=== PATIENT | female | born 1935 | race Caucasian/White ===

== ENCOUNTER → 2016-11-01 | Outpatient (CLI) | payer BC ==
[~2016-11-01] MED LIST: ASPI81TA28 PO; BROM0.07 OPR; CHOL100010 PO; LEVO50TA6 PO; LEVOXYL PO; PRED1SUS3 OPR; TRVOPS OPB
[2016-11-01 17:33] LABS: BLOOD UREA NITROGEN 16 mg/dl (7-18); BUN/CREATININE RATIO 22.9 (10-20); CALCIUM 9.6 mg/dl (8.5-10.1); CARBON DIOXIDE 28 mmol/L (21-32); CHLORIDE 105 mmol/L (98-107); CREATININE 0.68 mg/dl (0.60-1.20); GLUCOSE 90 mg/dl (70-99); SODIUM 143 mmol/L (136-145)
[2016-11-01 17:44] LABS: THYROID STIMULATING HORMONE 0.986 uIu/ml (0.300-4.500)
== END | disposition home or self-care (01) ==
LOC: C.LABBC 15:40
PROVIDERS: ATTEND Internal Medicine Geriatric Medicine
DX: E03.9 Hypothyroidism, unspecified (principal); I10 Essential (primary) hypertension

== ENCOUNTER → 2016-12-02 | Outpatient (CLI) | payer BC ==
[~2016-12-02] MED LIST changes: -LEVOXYL PO
--- NOTE | 2016-12-02 16:59 | DIAGNOSTIC IMAGING REPORT ---
MRI OF THE THORACIC SPINE WITHOUT IV CONTRAST CLINICAL HISTORY: Right flank pain. COMPARISON STUDY: Radiographs of the thoracic spine dated 09/08/2015. TECHNIQUE: MRI of the thoracic spine is performed using various T1 and T2-weighted sequences in the axial and sagittal planes. IV contrast was not administered for this examination. FINDINGS: Vertebral body height and alignment are maintained throughout the thoracic spine. Mild degenerative endplate edema is seen at T1-T2. Chronic degenerative endplate changes present from T5 through T9. No destructive bony lesion is seen. Hemangiomas are noted in the body of L2 and T7. Mild degenerative disc desiccation is seen throughout the thoracic spine. Tiny posterior disc bulges are noted at C6-C7, T1-T2, T12-L1, and L1-L2. No large disc herniation is seen. The central canal is widely patent. The thoracic spinal cord is normal in morphology and signal intensity. The conus medullaris terminates at the level of L1. No significant neural foraminal stenosis is seen throughout the thoracic spine. The paraspinous soft tissues are normal as visualized. A right lower lobe pulmonary lesion is questioned on axial image #20. This is not well assessed by MRI. IMPRESSION: 1. No large disc herniation, central canal stenosis, or high-grade neural foraminal narrowing is seen throughout the thoracic spine. 2. Mild degenerative disc disease with chronic endplate change as above. Mild endplate edema is noted at T1-T2. 3. The thoracic spinal cord is normal in morphology and signal intensity. 4. There is an indeterminant pulmonary lesion questioned in the right lower lobe. This is not well assessed by MRI and may be artifactual. Correlation with a chest CT is recommended for further assessment. Dictated: 12/02/2016 4:35 PM Transcribed: 12/02/2016 4:58 PM Khanh Electronically signed by: Soham Baez M.D. 12/02/2016 5:02 PM Dictated Date/Time: 12/02/2016 4:35 PM
== END | disposition home or self-care (01) ==
LOC: C.MRIBC 15:13
PROVIDERS: ATTEND Internal Medicine Geriatric Medicine
DX: R10.9 Unspecified abdominal pain (principal)

== ENCOUNTER → 2016-12-28 | Day surgery (SDC) | payer BC ==
[2016-11-22 14:36] VITALS: Ht 149.9 cm; Wt 57.3 kg
[~2016-12-28] VITALS: Ht 149.9 cm; Wt 57.3 kg
[~2016-12-28] MED LIST changes: +500ML BSS 0.3ML EPI 1:1000PF IRRIG ONE; +ACETAMINOPHEN 325 MG TAB PO PRN; +AMVISC PLUS 0.8ML SYRINGE INT OCU ONE; +ATROPINE SULFATE 0.1 MG/ML 5ML SYR IV PRN; +BSS FLUSH ONE; +CYCLOPENTOLATE HCL 1% OP SOLN PER DROP CHARGE OPR SCH; +EpHEDrine SULFATE INJ 50 MG/ML AMP IV PRN; +EpINEphrine INJ 1MG/ML AMP 1 MG/ML AMP ONE; +GATIFLOXACIN OP SOLN PER DROP CHARGE OPR SCH; +KETOROLAC 0.5% OP SOLN PER DROP CHARGE OPR SCH; +LACTATED RINGER'S 1000ML 500 ML IV SCH; +LIDOCAINE 3.5% OPH GEL PER APPLICATION CHARGE ONE; +LIDOCAINE HCL 1% MPF 2 ML VIAL ONE; +MIDAZOLAM HCL 1 MG/ML 2ML VIAL ONE; +NURSING VERBAL MED ORDER ONE; +OCUCOAT 1 ML SOLN IO ONE; +PHENYLEPHRINE HCL 10% OP SOLN PER DROP CHARGE OPR SCH; +PHENYLEPHRINE HCL 2.5% OP SOLN PER DROP CHARGE OPR SCH; +POVIDONE-IODINE OP SOLN 30 ML BTL ONE; +PROPARACAINE HCL 0.5% OP SOLN 15 ML BTL OP SCH; +TOBRAMYCIN/DEXAMETHASONE OPH OINT PER APPLN CHARGE ONE; +TROPICAMIDE 1% OP SOLN PER DROP CHARGE OPR SCH
[2016-12-28] MEDS: PHENYLEPHRINE HCL 2.5% OP SOLN PER DROP CHARGE OPR SCH ×2 (09:54→09:59)
[2016-12-28] MEDS: TROPICAMIDE 1% OP SOLN PER DROP CHARGE OPR SCH ×2 (09:55→10:00)
[2016-12-28] MEDS: CYCLOPENTOLATE HCL 1% OP SOLN PER DROP CHARGE OPR SCH ×2 (09:56→10:01)
[2016-12-28] MEDS: KETOROLAC 0.5% OP SOLN PER DROP CHARGE OPR SCH ×2 (09:57→10:02)
[2016-12-28] MEDS: GATIFLOXACIN OP SOLN PER DROP CHARGE OPR SCH ×2 (09:58→10:08)
--- NOTE | 2016-12-28 09:58 | History & Physical Bridge - [place] ---
H&P Re-Evaluation Bridge Note: I have examined the patient, reviewed the History & Physical and in the interval since the performance of the History & Physical I have noted the following changes of clinical significance: No changes noted
--- NOTE | 2016-12-28 11:22 | Anesthesia Progress Nt - [facility] ---
Anesthesia Post Op Note Date & Time Dec 28, 2016 at 11:21 Vital Signs Pain Intensity: 0 Vital Signs Past 12 Hours Date Time Temp Pulse Resp B/P Pulse Ox O2 Delivery O2 Flow Rate FiO2 12/28/16 09:39 36.6 78 20 146/91 96 Room Air Notes Mental Status: alert / awake / arousable, participated in evaluation Pt Amnestic to Procedure: Yes Nausea / Vomiting: adequately controlled Pain: adequately controlled Airway Patency, RR, SpO2: stable & adequate BP & HR: stable & adequate Hydration State: stable & adequate Anesthetic Complications: no major complications apparent
[2016-12-28 11:28] VITALS: TEMP 36.5
--- NOTE | 2016-12-28 11:29 | Discharge Instructions-SurgCtr ---
Discharge Instructions Date of Service Dec 28, 2016. Visit Reason for Visit: Cataract Right Eye Discharge Discharge Diagnosis / Problem: cataract Discharge Goals Goal(s): Improve function Activity Recommendations Activity Limitations: per Instructions/Follow-up section Anesthesia . Post Anesthesia Instructions: If you have had General Anesthesia or IV Sedation: * Do not drive today. * Resume driving when surgeon permits. * Do not make important decisions or sign legal documents today. * Call surgeon for: 1. Temperature elevations greater than 101 degrees F. 2. Uncontrollable pain. 3. Excessive bleeding. 4. Persistent nausea and vomiting. 5. Medication intolerance (nausea, vomiting or rash). * For nausea and vomiting use only clear liquids such as: tea, soda, bouillon until nausea subsides, then gradually increase diet as tolerated. * If you have any concerns or questions, call your surgeon's office. If physician is unavailable and it is an emergency, call 911 or go to the nearest emergency room. . Instructions / Follow-Up Instructions / Follow-Up ACTIVITY RECOMMENDATIONS: * No strenuous lifting, jogging or running for 4 days * No swimming or yard work for 1 week. * Limited bending is permitted, such as putting on shoes. RETURN TO SCHOOL/WORK: No work until seen by physician in office. MEDICATIONS: Resume previous medications unless instructed otherwise by your surgeon. This includes eye drops for glaucoma. Zymaxid/Gatifloxacin (goodman cap) - one drop every 2 hours until bedtime Nevanac/Ilevro/Prolensa/Ketorolac (cano cap) - one drop every 4 hours until bedtime Prednisolone (white/pink cap, SHAKE WELL) - one drop every 2 hours until bedtime Starting tomorrow - all 3 drops every 4 hours until seen in the office Optive drops - as needed for discomfort SPECIAL CARE INSTRUCTIONS: * Wear eyeshield when sleeping, for four nights. * You may wear your own glasses or sunglasses while awake. * You may read or watch TV * You may shower and wash your face, but be gentle around the eye and pat dry. * Blurry vision and mild irritation are normal. * Call office if pain is more severe or vision becomes dark at . FOLLOW UP VISIT: Follow-up with Dr Wong tomorrow. Diet Recommendations Home Diet: resume previous diet Procedures Procedures Performed: Right Cataract Phacoemulsification With Intraocular Lens Implant Pending Studies Studies pending at discharge: no Medical Emergencies . Who to Call and When: Medical Emergencies: If at any time you feel your situation is an emergency, please call 911 immediately. . Non-Emergent Contact Non-Emergency issues call your: Project Manager Interior Design . . "Provider Documentation" section prepared by Kamran Wong.
--- NOTE | 2016-12-28 11:29 | [facility] Operative Report ---
Operative Report Date of Service Dec 28, 2016. Operative Report 1. PREOPERATIVE DIAGNOSIS: Cataract of the right eye. 2. POSTOPERATIVE DIAGNOSIS: Same. 3. PROCEDURE: Phacoemulsification with intraocular lens implantation of the right eye. SURGEON: Dr. Kamran Wong. ANESTHESIA: Topical Lidocaine gel, 1% Non- Preserved intracameral Lidocaine, and monitored intravenous sedation. INDICATIONS FOR THE PROCEDURE: The patient is a 81 - year-old female with a history of cataract of the right eye causing significant visual impairment. The details of the proposed procedure were explained to the patient who asked appropriate questions and following discussion of all risks, benefits and alternatives agreed to have the procedure done. 4. OPERATION AND FINDINGS: DESCRIPTION OF PROCEDURE: After informed consent was obtained, the patient was brought to the Operating Room at the [facility]. The patient was placed in a supine position and then the right eye was prepped and draped in the usual sterile fashion for intraocular surgery. A drop of topical Lidocaine gel was placed in the operative eye. A wire lid speculum was then placed in the fornices. A corneal paracentesis was then created temporally. The Non-Preserved Lidocaine was then instilled into the anterior chamber. The anterior chamber was then pressurized with viscoelastic. A 2.0 mm clear corneal incision was then created temporally. A cystotome was inserted into the anterior chamber and used to create a tear in the anterior lens capsule. This capsular tear was then used to create a small flap and the flap was dragged in a counterclockwise direction in order to create a continuous curvilinear capsulorrhexis. Hydrodissection was accomplished with balanced salt solution. Phacoemulsification of the lens nucleus was then performed in a standard [id number] technique. The phaco time was 30 seconds with an average power of 10 %. The remaining cortical material was removed using irrigation aspiration. The capsular bag was then filled with viscoelastic. A Bausch & Lomb MI60L +22.0 diopters lens was then loaded into the injector and injected into the capsular bag. The remaining viscoelastic was removed with the irrigation aspiration handpiece. The wound was hydrated and then checked and found to be watertight. The intraocular pressure was checked and found to be adequate. The wire lid speculum was removed and the patient's face was cleaned and dried. TobraDex ointment was placed in the inferior fornix. The patient was discharged to the Recovery Room having tolerated the procedure well. There were no complications. The patient will be seen tomorrow in the office for follow-up. I attest to the content of the Intraoperative Record and any orders documented therein. Any exceptions are noted below.
[2016-12-28 11:50] VITALS: BP 146/83; PULSE 64; O2SAT 94
== END | disposition home or self-care (01) ==
LOC: X.SURG 09:02
PROVIDERS: ATTEND Ophthalmology
DX: H26.9 Unspecified cataract (principal); I10 Essential (primary) hypertension; E03.9 Hypothyroidism, unspecified; E78.5 Hyperlipidemia, unspecified; M19.90 Unspecified osteoarthritis, unspecified site; H40.9 Unspecified glaucoma; Z98.890 Other specified postprocedural states; Z98.41 Cataract extraction status, right eye; Z90.89 Acquired absence of other organs; Z68.26 Body mass index [BMI] 26.0-26.9, adult

== ENCOUNTER → 2017-01-18 | Day surgery (SDC) | payer BC ==
[2017-01-06 08:53] VITALS: Ht 149.9 cm; Wt 57.3 kg
[~2017-01-18] VITALS: Ht 149.9 cm; Wt 57.3 kg
[~2017-01-18] MED LIST changes: -CYCLOPENTOLATE HCL 1% OP SOLN PER DROP CHARGE OPR SCH; -GATIFLOXACIN OP SOLN PER DROP CHARGE OPR SCH; -KETOROLAC 0.5% OP SOLN PER DROP CHARGE OPR SCH; -NURSING VERBAL MED ORDER ONE; +PHENYLEPHRINE HCL 10% OP SOLN PER DROP CHARGE OPL SCH; -PHENYLEPHRINE HCL 10% OP SOLN PER DROP CHARGE OPR SCH; -PHENYLEPHRINE HCL 2.5% OP SOLN PER DROP CHARGE OPR SCH; +PROPARACAINE 0.5% OP SOLN PER DROP CHARGE OPL SCH; -PROPARACAINE HCL 0.5% OP SOLN 15 ML BTL OP SCH; -TROPICAMIDE 1% OP SOLN PER DROP CHARGE OPR SCH
[2017-01-18] MEDS: PHENYLEPHRINE HCL 2.5% OP SOLN PER DROP CHARGE OPL SCH ×2 (07:51→07:57)
[2017-01-18] MEDS: TROPICAMIDE 1% OP SOLN PER DROP CHARGE OPL SCH ×2 (07:52→07:58)
[2017-01-18] MEDS: CYCLOPENTOLATE HCL 1% OP SOLN PER DROP CHARGE OPL SCH ×2 (07:53→07:59)
[2017-01-18] MEDS: KETOROLAC 0.5% OP SOLN PER DROP CHARGE OPL SCH ×2 (07:54→08:00)
[2017-01-18] MEDS: GATIFLOXACIN OP SOLN PER DROP CHARGE OPL SCH ×2 (07:55→08:05)
--- NOTE | 2017-01-18 09:07 | Discharge Instructions-SurgCtr ---
Discharge Instructions Date of Service January 18, 2017. Visit Reason for Visit: Cataract Left Eye Discharge Discharge Diagnosis / Problem: cataract Discharge Goals Goal(s): Improve function Activity Recommendations Activity Limitations: per Instructions/Follow-up section Anesthesia . Post Anesthesia Instructions: If you have had General Anesthesia or IV Sedation: * Do not drive today. * Resume driving when surgeon permits. * Do not make important decisions or sign legal documents today. * Call surgeon for: 1. Temperature elevations greater than 101 degrees F. 2. Uncontrollable pain. 3. Excessive bleeding. 4. Persistent nausea and vomiting. 5. Medication intolerance (nausea, vomiting or rash). * For nausea and vomiting use only clear liquids such as: tea, soda, bouillon until nausea subsides, then gradually increase diet as tolerated. * If you have any concerns or questions, call your surgeon's office. If physician is unavailable and it is an emergency, call 911 or go to the nearest emergency room. . Instructions / Follow-Up Instructions / Follow-Up ACTIVITY RECOMMENDATIONS: * No strenuous lifting, jogging or running for 4 days * No swimming or yard work for 1 week. * Limited bending is permitted, such as putting on shoes. RETURN TO SCHOOL/WORK: No work until seen by physician in office. MEDICATIONS: Resume previous medications unless instructed otherwise by your surgeon. This includes eye drops for glaucoma. Zymaxid/Gatifloxacin (goodman cap) - one drop every 2 hours until bedtime Nevanac/Ilevro/Prolensa/Ketorolac (cano cap) - one drop every 4 hours until bedtime Prednisolone (white/pink cap, SHAKE WELL) - one drop every 2 hours until bedtime Starting tomorrow - all 3 drops every 4 hours until seen in the office Optive drops - as needed for discomfort SPECIAL CARE INSTRUCTIONS: * Wear eyeshield when sleeping, for four nights. * You may wear your own glasses or sunglasses while awake. * You may read or watch TV * You may shower and wash your face, but be gentle around the eye and pat dry. * Blurry vision and mild irritation are normal. * Call office if pain is more severe or vision becomes dark at . FOLLOW UP VISIT: Follow-up with Dr Wong tomorrow. Diet Recommendations Home Diet: resume previous diet Procedures Procedures Performed: Left Eye Cataract Phacoemulsification With Intraocular Lens Implant Pending Studies Studies pending at discharge: no Medical Emergencies . Who to Call and When: Medical Emergencies: If at any time you feel your situation is an emergency, please call 911 immediately. . Non-Emergent Contact Non-Emergency issues call your: Emergency Response Coordinator . . "Provider Documentation" section prepared by Kamran Wong. .
--- NOTE | 2017-01-18 09:08 | [facility] Operative Report ---
Operative Report Date of Service January 18, 2017. Operative Report 1. PREOPERATIVE DIAGNOSIS: Cataract of the left eye. 2. POSTOPERATIVE DIAGNOSIS: Same. 3. PROCEDURE: Phacoemulsification with intraocular lens implantation of the left eye. SURGEON: Dr. Kamran Wong. ANESTHESIA: Topical Lidocaine gel, 1% Non- Preserved intracameral Lidocaine, and monitored intravenous sedation. INDICATIONS FOR THE PROCEDURE: The patient is a 81 - year-old female with a history of cataract of the left eye causing significant visual impairment. The details of the proposed procedure were explained to the patient who asked appropriate questions and following discussion of all risks, benefits and alternatives agreed to have the procedure done. 4. OPERATION AND FINDINGS: DESCRIPTION OF PROCEDURE: After informed consent was obtained, the patient was brought to the Operating Room at the [facility]. The patient was placed in a supine position and then the left eye was prepped and draped in the usual sterile fashion for intraocular surgery. A drop of topical Lidocaine gel was placed in the operative eye. A wire lid speculum was then placed in the fornices. A corneal paracentesis was then created temporally. The Non-Preserved Lidocaine was then instilled into the anterior chamber. The anterior chamber was then pressurized with viscoelastic. A 2.0 mm clear corneal incision was then created temporally. A cystotome was inserted into the anterior chamber and used to create a tear in the anterior lens capsule. This capsular tear was then used to create a small flap and the flap was dragged in a counterclockwise direction in order to create a continuous curvilinear capsulorrhexis. Hydrodissection was accomplished with balanced salt solution. Phacoemulsification of the lens nucleus was then performed in a standard dovzij-[id number]-ifjvclz technique. The phaco time was 28 seconds with an average power of 10 %. The remaining cortical material was removed using irrigation aspiration. The capsular bag was then filled with viscoelastic. A Bausch & Lomb MI60L +22.0 diopters lens was then loaded into the injector and injected into the capsular bag. The remaining viscoelastic was removed with the irrigation aspiration handpiece. The wound was hydrated and then checked and found to be watertight. The intraocular pressure was checked and found to be adequate. The wire lid speculum was removed and the patient's face was cleaned and dried. TobraDex ointment was placed in the inferior fornix. The patient was discharged to the Recovery Room having tolerated the procedure well. There were no complications. The patient will be seen tomorrow in the office for follow-up. I attest to the content of the Intraoperative Record and any orders documented therein. Any exceptions are noted below.
[2017-01-18 09:09] VITALS: TEMP 36.7
[2017-01-18 09:34] VITALS: BP 152/86; PULSE 60; O2SAT 95
--- NOTE | 2017-01-18 09:38 | Anesthesia Progress Nt - [facility] ---
Anesthesia Post Op Note Date & Time January 18, 2017 at 09:38 Vital Signs Pain Intensity: 0 Vital Signs Past 12 Hours Date Time Temp Pulse Resp B/P Pulse Ox O2 Delivery O2 Flow Rate FiO2 01/18/17 09:34 60 16 152/86 95 Room Air 01/18/17 09:09 36.7 58 16 124/77 98 Room Air 01/18/17 07:46 36.7 61 16 133/71 94 Room Air Notes Mental Status: alert / awake / arousable, participated in evaluation Pt Amnestic to Procedure: Yes Nausea / Vomiting: adequately controlled Pain: adequately controlled Airway Patency, RR, SpO2: stable & adequate BP & HR: stable & adequate Hydration State: stable & adequate Anesthetic Complications: no major complications apparent
== END | disposition home or self-care (01) ==
LOC: X.SURG 07:30
PROVIDERS: ATTEND Ophthalmology
DX: H26.9 Unspecified cataract (principal); I10 Essential (primary) hypertension; E03.9 Hypothyroidism, unspecified; E78.5 Hyperlipidemia, unspecified

== ENCOUNTER → 2017-03-14 | Outpatient (CLI) | payer BC ==
[~2017-03-14] MED LIST changes: -500ML BSS 0.3ML EPI 1:1000PF IRRIG ONE; -ACETAMINOPHEN 325 MG TAB PO PRN; -AMVISC PLUS 0.8ML SYRINGE INT OCU ONE; -ATROPINE SULFATE 0.1 MG/ML 5ML SYR IV PRN; -BSS FLUSH ONE; -EpHEDrine SULFATE INJ 50 MG/ML AMP IV PRN; -EpINEphrine INJ 1MG/ML AMP 1 MG/ML AMP ONE; -LACTATED RINGER'S 1000ML 500 ML IV SCH; -LIDOCAINE 3.5% OPH GEL PER APPLICATION CHARGE ONE; -LIDOCAINE HCL 1% MPF 2 ML VIAL ONE; -MIDAZOLAM HCL 1 MG/ML 2ML VIAL ONE; -OCUCOAT 1 ML SOLN IO ONE; -PHENYLEPHRINE HCL 10% OP SOLN PER DROP CHARGE OPL SCH; -POVIDONE-IODINE OP SOLN 30 ML BTL ONE; -PROPARACAINE 0.5% OP SOLN PER DROP CHARGE OPL SCH; -TOBRAMYCIN/DEXAMETHASONE OPH OINT PER APPLN CHARGE ONE
--- NOTE | 2017-03-14 16:00 | MAMMOGRAPHY REPORT ---
BILATERAL DIGITAL SCREENING MAMMOGRAM WITH CAD: 03/14/2017 CLINICAL HISTORY: Routine screening. Patient has no complaints. TECHNIQUE: Bilateral CC and MLO views were obtained. Current study was also evaluated with a Compute r Aided Detection (CAD) system. COMPARISON: Comparison is made to exams dated: 03/11/2016 mammogram, 03/10/2015 mammogram, 10/15/2014 m ammogram, 03/08/2014 mammogram, 03/07/2013 mammogram, and 03/06/2012 mammogram - [facility] enter. BREAST COMPOSITION: The tissue of both breasts is heterogeneously dense, which may obscure small mas ses. FINDINGS: There are mild vascular calcifications in the breasts. Stable asymmetry in the medial left breast. No suspicious mass, architectural distortion or cluster of suspicious microcalcifications i s seen. IMPRESSION: ACR BI-RADS CATEGORY 1: NEGATIVE There is no mammographic evidence of malignancy. A 1 year screening mammogram is recommended. The pa tient will receive written notification of the results. Approximately 10% of breast cancers are not detected with mammography. A negative mammographic report should not delay biopsy if a clinically suggestive mass is present. Lesli Garcia M.D. ay/:03/14/2017 14:20:49 Sandblasting Supervisor: Vannessa Robertson RT(R)(M)(BD), [facility] letter sent: Normal 1/2 BI-RADS Code: ACR BI-RADS Category 1: Negative
== END | disposition home or self-care (01) ==
LOC: C.MAMM 12:54
PROVIDERS: ATTEND Internal Medicine Geriatric Medicine
DX: Z12.31 Encounter for screening mammogram for malignant neoplasm of breast (principal)

== ENCOUNTER → 2017-07-12 | Outpatient (CLI) | payer BC ==
--- NOTE | 2017-07-12 10:04 | DIAGNOSTIC IMAGING REPORT ---
CHEST 2 VIEWS ROUTINE HISTORY: 81 years-old Female CHEST PAIN acute atypical chest pain COMPARISON: Chest radiographs 08/05/2016, CT abdomen 09/05/2015 TECHNIQUE: Frontal and lateral views of the chest FINDINGS: Mild right hemidiaphragmatic elevation is unchanged. Unchanged right cardiophrenic opacity correlating with prominent epicardial fat pad. No pneumothorax, pleural effusion, focal airspace consolidation or overt pulmonary edema. Bones of the chest are grossly intact. Mild sigmoidal scoliosis. Degenerative changes of the spine and shoulders. IMPRESSION: Unchanged mild right hemidiaphragmatic elevation without acute cardiopulmonary process. The above report was generated using voice recognition software. It may contain grammatical, syntax or spelling errors. Electronically signed by: Norman Kay M.D. 07/12/2017 10:03 AM Dictated Date/Time: 07/12/2017 10:01 AM
== END | disposition home or self-care (01) ==
LOC: C.RADBC 09:43
PROVIDERS: ATTEND Internal Medicine Geriatric Medicine
DX: R07.9 Chest pain, unspecified (principal)

== ENCOUNTER → 2017-08-06 | Outpatient (CLI) | payer BC ==
--- NOTE | 2017-08-06 10:54 | DIAGNOSTIC IMAGING REPORT ---
CHEST 2 VIEWS ROUTINE HISTORY: Dyspnea. COMPARISON: Chest 07/12/2017. FINDINGS: The small linear densities within the lingula suggesting scarring or atelectasis. This is not significantly changed. The lungs are otherwise clear. No pleural effusions. No pneumothorax. The heart is normal in size. IMPRESSION: No significant change compared to the prior study. No acute process. Electronically signed by: Tadeo Khan M.D. 08/06/2017 10:53 AM Dictated Date/Time: 08/06/2017 10:52 AM
--- NOTE | 2017-08-06 10:58 | DIAGNOSTIC IMAGING REPORT ---
LUMBAR SPINE 5 VIEWS HISTORY: [id number] Lower back [id number] COMPARISON: Lumbar spine 09/08/2015. Chest 07/12/2017. FINDINGS: Mild S-shaped scoliosis of the thoracolumbar spine. This remains unchanged. The sacrum appears intact. Severe disc space narrowing and endplate sclerosis at L3-L4 which is slightly progressed. Mild disc space narrowing at L4-L5, unchanged. Mild facet osteoarthritis within the lower lumbar spine. Mild superior endplate compression deformity at L1. This is new compared the prior studies. This demonstrates approximately 10% loss of height anteriorly. IMPRESSION: Mild superior endplate compression deformity at L1 which is new compared the prior studies and favors an acute to subacute fracture. No associated retropulsion. Electronically signed by: Tadeo Khan M.D. 08/06/2017 10:56 AM Dictated Date/Time: 08/06/2017 10:53 AM
== END | disposition home or self-care (01) ==
LOC: C.RADBC 10:31
PROVIDERS: ATTEND Internal Medicine
DX: R06.00 Dyspnea, unspecified (principal); S39.92XA Unspecified injury of lower back, initial encounter; X58.XXXA Exposure to other specified factors, initial encounter

== ENCOUNTER → 2017-08-13 | Outpatient (CLI) | payer BC ==
--- NOTE | 2017-08-13 11:44 | DIAGNOSTIC IMAGING REPORT ---
CHEST 2 VIEWS ROUTINE CLINICAL HISTORY: Cough. COMPARISON STUDY: Chest radiograph August 06, 2017. FINDINGS: There is no pneumothorax or pleural effusion. There is no consolidation to suggest pneumonia. Linear left lung opacity suggests atelectasis or scarring. Cardiomediastinal silhouette is normal. Pulmonary vascularity is normal. IMPRESSION: 1. No acute cardiopulmonary findings. 2. Linear left lung opacities which favor atelectasis. Electronically signed by: Munir López M.D. 08/13/2017 11:42 AM Dictated Date/Time: 08/13/2017 11:41 AM
== END | disposition home or self-care (01) ==
LOC: C.RADBC 10:37
PROVIDERS: ATTEND Internal Medicine
DX: R05 Cough (principal); R09.89 Other specified symptoms and signs involving the circulatory and respiratory systems; R91.8 Other nonspecific abnormal finding of lung field

== ENCOUNTER → 2017-08-26 | Outpatient (CLI) | payer BC ==
--- NOTE | 2017-08-26 11:59 | DIAGNOSTIC IMAGING REPORT ---
LUMBAR SPINE W/O CONTRAST HISTORY: Pain. Trauma. Urinary incontinence. URINARY INCONTINENCE, STENOSIS TECHNIQUE: Multiplanar multisequence MRI of the lumbar spine was performed without the use of contrast. COMPARISON: None. FINDINGS: For the purpose of the report the L5-S1 disc space will be located on axial image 28 of 31. Moderate degenerative disc change throughout the entire lumbar region. Mild subacute compression deformity superior endplate L1. No evidence for displacement posteriorly of any component of the vertebral body. Signal characteristics suggest a subacute process. L1-L2: No significant compromise of the spinal canal mild broad-based disc bulge. Minimal impact anterior thecal sac. L2-L3: No significant central canal or neural foraminal narrowing. L3-L4: Mild multifactorial narrowing of the spinal canal. Broad-based bulging disc. Mild hypertrophic change posterior facets and ligamentum flavum. Minimal narrowing neuroforamina bilaterally. L4-L5: Mild broad-based bulging disc. Minimal impact anterior thecal sac. Neuroforamina are patent bilaterally. L5-S1: No significant central canal or neural foraminal narrowing. IMPRESSION: 1. Subacute compression deformity superior endplate L1 with estimated loss of vertebral body height at 10-15%. 2. No compromise of the spinal canal at this level, nor is the posterior displacement of any component of vertebral body. 3. Mild multifactorial narrowing of the spinal canal at L3-L4 and L4-L5 with only minimal narrowing narrowing of the neuroforamina bilaterally. 4. No major compromise of the spinal canal. The above report was generated using voice recognition software. It may contain grammatical, syntax or spelling errors. Electronically signed by: Ryan Peralta M.D. 08/26/2017 11:58 AM Dictated Date/Time: 08/26/2017 11:54 AM
== END | disposition home or self-care (01) ==
LOC: C.MRIBC 10:15
PROVIDERS: ATTEND Orthopaedic Surgery Orthopaedic Surgery of the Spine
DX: M48.061 Spinal stenosis, lumbar region without neurogenic claudication (principal); R32 Unspecified urinary incontinence; R93.7 Abnormal findings on diagnostic imaging of other parts of musculoskeletal system

== ENCOUNTER → 2017-12-09 | Outpatient (CLI) | payer BC ==
[2017-12-09 13:24] LABS: BASO ABS # 0.04 K/uL (0-0.2); EOS ABS # 0.24 K/uL (0-0.5); HEMATOCRIT 42.7 % (37-47); HEMOGLOBIN 14.4 g/dL (12.0-16.0); LYMPH % 39.4 %; LYMPH ABS # 1.57 K/uL (1.2-3.4); MEAN CELL VOLUME 94.3 fL (80-100); MEAN CORPUSCULAR HEMOGLOBIN 31.8 pg (25-34); MEAN CORPUSCULAR HGB CONC 33.7 g/dl (32-36); MEAN PLATELET VOLUME 9.5 fL (7.4-10.4); MONO ABS # 0.24 K/uL (0.11-0.59); NEUT % 47.6 %; NEUT ABS # 1.89 K/uL (1.4-6.5); PLATELET COUNT 218 K/uL (130-400); RED CELL DISTRIBUTION WIDTH CV 14.2 % (11.5-14.5); RED CELL DISTRIBUTION WIDTH SD 48.8 fL (36.4-46.3); WHITE BLOOD COUNT 3.98 K/uL (4.8-10.8)
[2017-12-09 13:52] LABS: ALBUMIN 3.7 gm/dl (3.4-5.0); ALT/SGPT 24 U/L (12-78); BLOOD UREA NITROGEN 13 mg/dl (7-18); CALCIUM 9.5 mg/dl (8.5-10.1); CARBON DIOXIDE 28 mmol/L (21-32); CHOLESTEROL 271 mg/dl (0-200); CREATININE 0.77 mg/dl (0.60-1.20); GLUCOSE 108 mg/dl (70-99); SODIUM 137 mmol/L (136-145)
[2017-12-09 14:03] LABS: ALKALINE PHOSPHATASE 84 U/L (45-117); AST/SGOT 23 U/L (15-37); LDL CHOLESTEROL CALCULATED 177 mg/dl; TOTAL PROTEIN 7.1 gm/dl (6.4-8.2)
== END | disposition home or self-care (01) ==
LOC: C.LABBC 09:41
PROVIDERS: ATTEND Internal Medicine Geriatric Medicine
DX: E78.5 Hyperlipidemia, unspecified (principal); M85.80 Other specified disorders of bone density and structure, unspecified site; M47.9 Spondylosis, unspecified; E03.9 Hypothyroidism, unspecified; I10 Essential (primary) hypertension; E55.9 Vitamin D deficiency, unspecified

== ENCOUNTER → 2017-12-22 | Outpatient (CLI) | payer BC ==
--- NOTE | 2017-12-22 15:20 | DIAGNOSTIC IMAGING REPORT ---
TWO VIEW CHEST CLINICAL HISTORY: Cough. FINDINGS: PA and lateral chest radiographs are compared to study dated 08/13/2017 and correlated with chest CT dated 08/22/2015. The heart is enlarged and there is atherosclerotic calcification of the thoracic aorta. The pulmonary vasculature is noncongested. Chronic interstitial thickening and mild elevation of right hemidiaphragm are similar to previous. No airspace consolidation or pleural effusion is identified. There is mild bibasilar atelectasis. There is no pneumothorax. The skeletal structures are osteopenic. The bony thorax appears intact. There is mild thoracic scoliosis. IMPRESSION: Mild cardiac enlargement with no active disease in the chest. Electronically signed by: Soham Baez M.D. 12/22/2017 3:18 PM Dictated Date/Time: 12/22/2017 3:17 PM
== END | disposition home or self-care (01) ==
LOC: C.LABBC 14:47
PROVIDERS: ATTEND Internal Medicine Geriatric Medicine
DX: R05 Cough (principal)

== ENCOUNTER → 2018-02-06 | Outpatient (CLI) | payer BC | END | disposition home or self-care (01) | LOC: C.MAMM 13:56 | PROVIDERS: ATTEND Internal Medicine Geriatric Medicine | DX: Z00.00 Encounter for general adult medical examination without abnormal findings (principal); M85.89 Other specified disorders of bone density and structure, multiple sites; M81.0 Age-related osteoporosis without current pathological fracture; S32.000A Wedge compression fracture of unspecified lumbar vertebra, initial encounter for closed fracture; X58.XXXA Exposure to other specified factors, initial encounter ==

== ENCOUNTER → 2018-05-04 | Day surgery (SDC) | payer BC ==
[2018-04-27 07:37] VITALS: Ht 148.6 cm; Wt 57.3 kg
[~2018-05-04] VITALS: Ht 148.6 cm; Wt 57.3 kg
[~2018-05-04] MED LIST changes: +ASPCH81X PO; -ASPI81TA28 PO; -BROM0.07 OPR; -CHOL100010 PO; +CHOL20009 PO; +LIDOCAINE HCL 2% 2 ML VIAL (20MG/ML) ONE; +MIDAZOLAM HCL 1 MG/ML 2ML VIAL ONE; +ONDANSETRON INJ 2 MG/ML 2 ML VIAL ONE; -PRED1SUS3 OPR; +PROPOFOL IV EMULSION 10 MG/ML 20 ML VIAL ONE; +SODIUM CHLORIDE 0.9% 500ML 500 ML IV ONE; +TRAV0.00 OPB; -TRVOPS OPB
--- NOTE | 2018-05-04 13:15 | Endo History and Physical ---
History & Physical Date of Service: May 04, 2018. Chief Complaint: RECTAL BLEED Referring Physician: DR. WILSON History of Present Illness rectal bleeding/painless; Past Surgical History Hx Cardiac Surgery: No Hx Internal Defibrillator: No Hx Abdominal Surgery: No Hx Post-Op Nausea and Vomiting: No Hx Cancer Surgery: No Hx Thoracic Surgery: No Hx Orthopedic: No Hx Urinary Tract Surgery: No Family History None Social History Smoking Status: Never Smoker Hx Substance Use: No Hx Alcohol Use: No Allergies Coded Allergies: Ezetimibe (Verified Allergy, Mild, Exhausted, 04/27/18) Timolol (Verified Allergy, Mild, Swelling, 04/27/18) Brimonidine (Verified Allergy, Unknown, SWELLING ON FACE, 04/27/18) Lisinopril (Verified Allergy, Unknown, HEART RATE DROPPED/TIRED, 04/27/18) Losartan (Verified Allergy, Unknown, SEVERE BACK PAIN, 04/27/18) Current Medications Reported Home Medications Medications Dose Route/Sig Max Daily Dose Days Date Category Travatan Z (Travoprost) 0.004 % [place] 1 Drops OPB HS 04/27/18 Reported Vitamin D (Cholecalciferol) 2,000 Unit Tab 1 Tab PO HS 04/27/18 Reported Aspirin Chewable (Aspirin) 81 Mg Chew 81 Mg PO HS 04/27/18 Reported Levothyroxine Sodium 50 Mcg Tab 1 Tab PO QAM 04/27/18 Reported Vital Signs Weight (Kilograms): 57.27 Height (Feet): 4 Height (Inches): 10.5 Date Time Temp Pulse Resp B/P (MAP) Pulse Ox O2 Delivery O2 Flow Rate FiO2 05/04/18 12:42 36.7 78 16 155/90 (111) 93 Room Air Physical Exam General Appearance: WD/WN, no apparent distress Respiratory/Chest: Auscultation: breath sounds normal Cardiovascular: Heart Auscultation: RRR Abdomen: Bowel Sounds: normal Inspection & Palpation: soft, non-distended, no tenderness, guarding & rebound Assessment and Plan colonoscopy
--- NOTE | 2018-05-04 13:56 | Discharge Instructions ---
Endoscopy Patient Instructions Date / Procedure(s) Performed May 04, 2018. Colonoscopy Allergy Information Coded Allergies: Timolol (Verified Allergy, Mild, Swelling, 04/27/18) Brimonidine (Verified Allergy, Unknown, SWELLING ON FACE, 04/27/18) Lisinopril (Verified Allergy, Unknown, HEART RATE DROPPED/TIRED, 04/27/18) Ezetimibe (Verified Adverse Reaction, Mild, Exhausted, 05/04/18) Losartan (Verified Adverse Reaction, Unknown, SEVERE BACK PAIN, 05/04/18) Discharge Date / Findings May 04, 2018. diverticulosis distal focal proctitis-bx Medication Instructions Restart Stopped Medication(s): Reported Home Medications Medications Dose Route/Sig Max Daily Dose Days Date Category Travatan Z (Travoprost) 0.004 % [place] 1 Drops OPB HS 04/27/18 Reported Vitamin D (Cholecalciferol) 2,000 Unit Tab 1 Tab PO HS 04/27/18 Reported Aspirin Chewable (Aspirin) 81 Mg Chew 81 Mg PO HS 04/27/18 Reported Levothyroxine Sodium 50 Mcg Tab 1 Tab PO QAM 04/27/18 Reported 1) keep stools soft ( fiber/water/colace 100mg twice daily 2) Protofoam 1 application three times daily x 2 weeks nayan Reported Home Medications Medications Dose Route/Sig Max Daily Dose Days Date Category Travatan Z (Travoprost) 0.004 % [place] 1 Drops OPB HS 04/27/18 Reported Vitamin D (Cholecalciferol) 2,000 Unit Tab 1 Tab PO HS 04/27/18 Reported Aspirin Chewable (Aspirin) 81 Mg Chew 81 Mg PO HS 04/27/18 Reported Levothyroxine Sodium 50 Mcg Tab 1 Tab PO QAM 04/27/18 Reported 1) keep stools soft ( fiber/water/colace 100mg twice daily 2) Protofoam 1 application three times daily x 2 weeks nayan Provider Instructions Activity Restrictions - No exercising or heavy lifting for 24 hours. - Do not drink alcohol the day of the procedure. - Do not drive a car or operate machinery until the day after the procedure. - Do not make any important decisions or sign important papers in 24 hours after the procedure. Following Day: - Return to full activity which may include returning to work/school. Diet Start your diet with liquids and light foods (jello, soup, juice, toast). Then eat your usual diet if not nauseated. Treatment For Common After Affects For mild abdominal pain, bloating, or excessive gas: - Rest - Eat lightly - Lie on right side Follow-Up Information Follow-up with DR. WILSON as scheduled Anesthesia Information What You Should Know You have had a procedure that required some medicine to reduce anxiety and discomfort. This treatment is called moderate sedation. After receiving the treatment, you may be sleepy, but you will be able to breathe on your own. The effects of the treatment may last for several hours. Follow these instructions along with Activity/Diet recommendations noted above: * Do NOT do anything where dizziness or clumsiness would be dangerous. * Rest quietly at home today, then you can be up and about tomorrow. * Have a responsible person stay with you the rest of today. * You may have had an I.V. today. If so, you may take the dressing off later today. Recommendations Call your doctor if: * Trouble breathing * Continuous vomiting for more than 24 hours * Temperature above 101 degrees * Severe abdominal pain or bloating * Pain not relieved by pain medicine ordered * There is increased drainage or redness from any incision * A large amount of rectal bleeding greater than 2-3 tablespoons. (If you had a polyp/s removed or have hemorrhoids, a small amount of blood - from the rectum is to be expected.) * You have any unanswered questions or concerns. IN THE EVENT OF A SERIOUS EMERGENCY, GO TO THE NEAREST EMERGENCY ROOM Your discharge instructions were prepared by provider Sandoval Vincent. Patient Instructions Signature Page Roseanna Covarrubias Patient (or Guardian) Signature/Date: I have read and understand the instructions given to me by my caregivers. Caregiver/RN/Doctor Signature/Date: The above-named patient and/or guardian has received patient instructions on this date. + Original Patient Signature Page (only) stays with chart. Please make copy for patient.
--- NOTE | 2018-05-04 14:01 | GI REPORT ---
Patient Name: Roseanna Covarrubias Procedure Date: 05/04/2018 12:58 PM Date of : 1935 Admit Type: Outpatient Age: 82 Gender: Female Attending MD: Sandoval Vincent MD Procedure: Colonoscopy Providers: Sandoval Vincent MD Referring MD: Ramin Royal Indications: Hematochezia Medicines: Propofol per Anesthesia Complications: No immediate complications. Estimated blood loss: Minimal. Estimated Blood Loss: Estimated blood loss was minimal. Procedure: Pre-Anesthesia Assessment: - Prior to the procedure, a History and Physical was performed, and patient medications and allergies were reviewed. The patient's tolerance of previous anesthesia was also reviewed. The risks and benefits of the procedure and the sedation options and risks were discussed with the patient. All questions were answered, and informed consent was obtained. Prior Anticoagulants: The patient has taken no previous anticoagulant or antiplatelet agents. ASA Grade Assessment: II - A patient with mild systemic disease. After reviewing the risks and benefits, the patient was deemed in satisfactory condition to undergo the procedure. After I obtained informed consent, the scope was passed under direct vision. Throughout the procedure, the patient's blood pressure, pulse, and oxygen saturations were monitored continuously. The Scope was introduced through the anus and advanced to the cecum, identified by appendiceal orifice and ileocecal valve. The colonoscopy was performed without difficulty. The patient tolerated the procedure well. The quality of the bowel preparation was good. Findings: The perianal and digital rectal examinations were normal. Pertinent negatives include normal sphincter tone, no palpable rectal lesions and no anal lesion or abnormality was detected. Multiple small and large-mouthed diverticula were found in the sigmoid colon. A localized area of mildly congested, erythematous and inflamed mucosa was found in the distal rectum. Biopsies were taken with a cold forceps for histology. Estimated blood loss was minimal. Verification of patient identification for the specimen was done by the physician and photonics engineering technician using the patient's name and medical record number. Impression: - Diverticulosis in the sigmoid colon. - Congested, erythematous and inflamed mucosa in the distal rectum. Biopsied. Recommendation: - Discharge patient to home (ambulatory). - Resume regular diet. - Continue present medications. - Await pathology results. - Repeat colonoscopy for surveillance based on pathology results. - Return to referring physician as previously scheduled. MD Sandoval Russ MD 05/04/2018 2:01:05 PM This report has been signed electronically. Note Initiated On: 05/04/2018 12:58 PM Number of Addenda: 0 I attest to the content of the Intraoperative Record and orders documented therein, exceptions below {[id number]}
--- NOTE | 2018-05-04 14:09 | Anesthesiology Progress Note ---
Anesthesia Post Op Note Date & Time May 04, 2018 at 14:08 Vital Signs Pain Intensity: 3 Vital Signs Past 12 Hours Date Time Temp Pulse Resp B/P (MAP) Pulse Ox O2 Delivery O2 Flow Rate FiO2 05/04/18 13:56 64 16 126/63 (84) 97 Room Air 05/04/18 12:42 36.7 78 16 155/90 (111) 93 Room Air Notes Mental Status: alert / awake / arousable, participated in evaluation Pt Amnestic to Procedure: Yes Nausea / Vomiting: adequately controlled Pain: adequately controlled Airway Patency, RR, SpO2: stable & adequate BP & HR: stable & adequate Hydration State: stable & adequate Anesthetic Complications: no major complications apparent
[2018-05-04 14:22] VITALS: BP 156/74; PULSE 63; O2SAT 97
== END | disposition home or self-care (01) ==
LOC: C.GI 12:08
PROVIDERS: ATTEND Internal Medicine Gastroenterology
DX: K51.211 Ulcerative (chronic) proctitis with rectal bleeding (principal); K57.30 Diverticulosis of large intestine without perforation or abscess without bleeding; K21.9 Gastro-esophageal reflux disease without esophagitis; I10 Essential (primary) hypertension; Z79.82 Long term (current) use of aspirin

== ENCOUNTER 2022-04-17 03:40 | Observation (INO) ==
[2022-04-17] MEDS ORDERED: ACETAMINOPHEN 65 ML IV ONE (04:06)
[2022-04-17] MEDS ORDERED: SODIUM CHLORIDE 0.9% 500 ML IV ONE (04:06)
[2022-04-17] MEDS ORDERED: cefTRIAXone SODIUM 1,000 MG/50 ML BAG IV STA (04:08)
[2022-04-17 04:31] LABS: Basophils # (auto) 0.03 K/uL (0-0.2); Basophils % (auto) 0.3 %; Eosinophils # (auto) 0.19 K/uL (0-0.50); Eosinophils % (auto) 2.2 %; Hematocrit (blood only) 42.1 % (34.1-44.9); Hemoglobin 14.3 g/dl (12.0-16.0); Immature Granulocytes # (auto) 0.02 K/uL (0.00-0.02); Immature Granulocytes % (auto) 0.2 %; Lymphocytes # (auto) 0.84 K/uL (1.2-3.4); Lymphocytes % (auto) 9.8 %; Mean Corpuscular Hemoglobin 31.3 pg (25.0-34.0); Mean Corpuscular Volume 92.1 fL (80.0-100.0); Mean Platelet Volume 8.7 fL (9.4-12.3); Monocytes # (auto) 0.53 K/uL (0.24-0.82); Monocytes % (auto) 6.2 %; Neutrophils # (auto) 6.97 K/uL (1.4-6.5); Neutrophils % (auto) 81.3 %; Platelet Count 219 K/uL (130-400); RDW Coefficient of Variation 12.9 % (11.5-14.5); RDW Standard Deviation 43.7 fL (36.4-46.3); Red Blood Count 4.57 M/uL (3.93-5.22); White Blood Count 8.58 K/ul (4.8-10.8)
[2022-04-17 04:53] LABS: Alanine Aminotransferase 16 U/L (7-52); Albumin Globulin Ratio 1.4 (0.9-2); Albumin Level 4.2 gm/dl (3.4-5.0); Alkaline Phosphatase 83 U/L (34-104); Anion Gap 7 (3-11); Aspartate Aminotransferase 19 U/L (13-39); BUN Creatinine Ratio 24.2 (10-20); Bilirubin,Total 0.4 mg/dl (0.2-1.0); Blood Urea Nitrogen 15 mg/dl (6-23); Calcium 10.3 mg/dl (8.5-10.1); Carbon Dioxide 27 mmol/L (21-32); Chloride 102 mmol/L (98-107); Est GFR (African American) 95.3 ml/min; Est GFR (Non-African American) 82.2 ml/min; Globulin 2.9 gm/dl (2.5-4.0); Glucose 131 mg/dl (70-99(Fasting)); Magnesium 1.9 mg/dl (1.7-2.4); Sodium 136 mmol/L (136-145); Total Protein 7.1 gm/dl (6.0-8.3)
[2022-04-17 04:54] LABS: Partial Thromboplastin Ratio 0.9; Partial Thromboplastin Time 25.8 Seconds (21.0-31.0); Prothrombin Time 10.4 Seconds (9.0-12.0)
[2022-04-17 05:05] LABS: Bacteria Urine Automated Negative (Negative); Bilirubin Urine Negative (Negative); Blood Urine 3+ (Negative); Glucose Urine UA Negative (Negative); Ketones Urine Negative (Negative); Leukocyte Esterase Urine 2+ (Negative); Nitrite Urine Negative (Negative); Specific Gravity Urine 1.016 (1.000-1.030); Urobilinogen Urine Negative (Negative); WBC Urine Automated >30 /hpf (0-5); pH Urine 7.5 (4.5-7.5)
[2022-04-17 05:10] LABS: Appearance Urine Turbid (Clear); Color Urine Red; Protein Urine 2+ (Negative)
[2022-04-17 05:19] LABS: Troponin I High Sensitivity 4.9 pg/ml (0-14)
[2022-04-17 05:27] LABS: RBC Urine Automated >30 /hpf (0-4)
--- NOTE | 2022-04-17 05:58 | Emergency Department Note ---
History of Present Illness General Chief complaint: Hematuria Stated complaint: BLOOD IN URINE,SOB,FEVER,COUGH W/ PHLEGM Time Seen by Provider: 04/17/22 03:54 History of Present Illness This is an 86-year-old female presenting to the emergency department for evaluation of dysuria, hematuria, fever, and some increased work with breathing. The patient has had some dysuria symptoms for the past 2 to 3 days that seem to worsen tonight. She is the primary caregiver for her , and she does have some hesitancy about coming to the ER because she cares for him. The patient has not been drinking much recently because of the pain with urination. She has not been taking anything [id number] for her discomfort, which she rates a 3/10. Home Medications Medication Instructions Recorded Confirmed Type cholecalciferol (vitamin D3) 50 2,000 units PO HS #30 tabs 05/29/19 04/17/22 History mcg (2,000 unit) tablet travoprost 0.004 % eye drops 1 drops ophthalmic (eye) HS 05/29/19 04/17/22 History aspirin 81 mg tablet,delayed 81 mg PO HS 07/19/19 04/17/22 History release (Zoey Low Dose Aspirin) TENS unit and electrodes combo pack #1 ea 11/06/19 02/03/22 Rx levothyroxine 50 mcg tablet 50 mcg PO QAM 90 days #90 tabs 06/08/21 04/17/22 Rx cyclobenzaprine 5 mg tablet 5 mg PO TID PRN muscle spasm and 02/03/22 02/03/22 Rx back pain #30 tabs prednisone 20 mg tablet 20 mg PO DAILY #5 tabs 02/03/22 02/03/22 Rx Allergies Allergy/AdvReac Type Severity Reaction Status Date / Time timolol Allergy Mild Swelling Verified 02/03/22 14:18 brimonidine Allergy Unknown SWELLING Verified 02/03/22 14:18 ON FACE lisinopril Allergy Unknown HEART RATE Verified 02/03/22 14:18 DROPPED/TIRED adhesive Allergy Verified 02/03/22 14:18 amlodipine Allergy Verified 02/03/22 14:18 labetalol Allergy Verified 02/03/22 14:18 ezetimibe AdvReac Mild Exhausted Verified 02/03/22 14:18 losartan AdvReac Unknown SEVERE Verified 02/03/22 14:18 BACK PAIN benzonatate AdvReac eye Verified 02/03/22 14:18 pressure methocarbamol AdvReac itching Verified 02/03/22 14:18 Past Med/Surg History Medical History Chronic low back pain Gastroesophageal reflux disease Glaucoma History of vertebral compression fracture Hyperlipidemia Hypertension Hypothyroidism Osteoporosis Sensorineural hearing loss (SNHL) of both ears Vitamin D deficiency Surgical History History of wisdom tooth extraction S/P tonsillectomy Family History Daughter Bipolar disorder Schizophrenia Sister Bipolar disorder Brother Systemic lupus erythematosus Unknown Breast cancer Colorectal cancer Lung cancer Ovarian cancer Prostate cancer Uncle Parkinson disease Other Adopted Denies family history of Glaucoma Social History Smoking Status: Never smoker Second Hand Exposure: No; Hx Alcohol Use: No Hx Substance Use: No Preferred Language: Yi Communication Ability: Effective Visual Impairment: Limited Hearing Ability: Use of Hearing Aid [employer] Technician Required: No Beliefs That Will Affect Care: None marital status: Current Living Situation: Spouse current occupational status: retired current occupation: religion instructor at [employer] How many Children do You have: 4 Feels Safe at Home: Yes Childhood Exposure to Second-Hand Smoke: No caffeine: Yes Dental Care, Regularly: Yes Physical Activity Frequency: Daily Seatbelt Use: always Sunscreen Use: No Assistive Devices: Glasses, Hearing Aid - Bilateral and Walker Review of Systems A total of 10 systems reviewed and were otherwise negative Physical Exam Vital Signs Vital Signs - 24 hr 04/17/22 03:48 04/17/22 04:33 04/17/22 04:05 Temperature 37.6 C H Temperature Source Temporal Artery Scan Pulse Rate 110 H 95 H Pulse Rate from SpO2 Sensor Respiratory Rate 18 20 20 Respiratory Effort / Characteristics Non-Labored Spontaneous SOB on Exertion Respiratory Depth Normal Blood Pressure 161/98 H 147/93 H Blood Pressure Mean 119 111 Pulse Oximetry 93 93 93 Oxygen Delivery Method Room Air Room Air Sepsis Recent Fever Within 48 Hours No Sepsis New/Unexplained Change in Mental Status N/A Sepsis Action Taken by Nursing No Action Required 04/17/22 04:35 04/17/22 04:45 04/17/22 05:00 Temperature Temperature Source Pulse Rate 98 H 91 H Pulse Rate from SpO2 Sensor 98 H 91 H Respiratory Rate 25 H 24 Respiratory Effort / Characteristics Non-Labored Spontaneous SOB on Exertion Respiratory Depth Blood Pressure 147/93 H Blood Pressure Mean 111 Pulse Oximetry 93 94 92 Oxygen Delivery Method Room Air Sepsis Recent Fever Within 48 Hours Sepsis New/Unexplained Change in Mental Status Sepsis Action Taken by Nursing 04/17/22 05:05 04/17/22 05:30 04/17/22 06:00 Temperature Temperature Source Pulse Rate Pulse Rate from SpO2 Sensor Respiratory Rate 20 20 Respiratory Effort / Characteristics Non-Labored Spontaneous SOB on Exertion Non-Labored Spontaneous Non-Labored Spontaneous Respiratory Depth Blood Pressure Blood Pressure Mean Pulse Oximetry 94 93 92 Oxygen Delivery Method Room Air Room Air Room Air Sepsis Recent Fever Within 48 Hours Sepsis New/Unexplained Change in Mental Status Sepsis Action Taken by Nursing 04/17/22 05:15 04/17/22 05:30 04/17/22 05:45 Temperature Temperature Source Pulse Rate 93 H 79 84 Pulse Rate from SpO2 Sensor 95 H 80 84 Respiratory Rate 18 21 20 Respiratory Effort / Characteristics Respiratory Depth Blood Pressure 146/93 H 134/83 142/87 H Blood Pressure Mean 110 100 105 Pulse Oximetry 94 91 92 Oxygen Delivery Method Sepsis Recent Fever Within 48 Hours Sepsis New/Unexplained Change in Mental Status Sepsis Action Taken by Nursing 04/17/22 06:00 Temperature Temperature Source Pulse Rate 79 Pulse Rate from SpO2 Sensor 80 Respiratory Rate 20 Respiratory Effort / Characteristics Respiratory Depth Blood Pressure 134/78 Blood Pressure Mean 96 Pulse Oximetry 94 Oxygen Delivery Method Sepsis Recent Fever Within 48 Hours Sepsis New/Unexplained Change in Mental Status Sepsis Action Taken by Nursing VITALS: Vitals are noted on the nurse's note and reviewed by myself. Vital signs with slight tachycardia and low-grade fever. GENERAL: Pleasant elderly female in no acute distress. She is answering questions appropriately. HEAD: Normocephalic atraumatic. NECK: Supple without nuchal rigidity. No lymphadenopathy. No thyromegaly. Cervical spine is nontender. HEART: Regular rate and rhythm without murmurs gallops or rubs. LUNGS: Clear to auscultation bilaterally without wheezes, rales or rhonchi. No retractions or accessory muscle use. ABDOMEN: Positive normal bowel sounds x 4. Soft, nontender, without masses or organomegaly. No guarding or rebound tenderness. MUSCULOSKELETAL: No muscle atrophy, erythema, or edema noted. Full range of motion in all extremities. NEURO: Patient was alert and oriented to person place and time. CN II through XII grossly intact. Course Administered Medications Acetaminophen (Acetaminophen 325 Mg Tab) 650 mg PO Q4H PRN PRN Reason: Pain or Fever Stop: 05/17/22 08:20 Last Admin: 04/17/22 20:16 Dose: 650 mg Documented By: DEREK Albuterol (Albuterol Hfa 8 Gm Inhaler) 2 puffs INH Q4R RON Stop: 05/17/22 08:20 Last Admin: 04/17/22 19:57 Dose: 2 puffs Documented By: Admin: 04/17/22 14:53 Dose: Not Given Documented By: Admin: 04/17/22 14:16 Dose: 2 puffs Documented By: Admin: 04/17/22 11:13 Dose: 2 puffs Documented By: INDU Levothyroxine Sodium (Levothyroxine Sodium 50 Mcg Tablet) 50 mcg PO DAILYBB RON Stop: 05/17/22 08:59 Last Admin: 04/17/22 09:40 Dose: 50 mcg Documented By: NICOLE Polyethylene Glycol (Polyethylene (Miralax) 17 Gm Pack) 17 gm PO DAILY RON Stop: 05/17/22 08:59 Last Admin: 04/17/22 09:40 Dose: 17 gm Documented By: NICOLE Travoprost (Travoprost Z 0.004% Oph Soln 2.5 Ml Btl) 1 drops OP HS RON Stop: 05/17/22 20:59 Last Admin: 04/17/22 20:18 Dose: 1 drops Documented By: DEREK Discontinued Medications Sodium Chloride (Nss) 500 mls @ 999 mls/hr IV .Q31M ONE Stop: 04/17/22 04:36 Last Infusion: 04/17/22 05:41 Dose: 0 mls/hr Documented By: Admin: 04/17/22 04:53 Dose: 999 mls/hr Documented By: LEANDRO Acetaminophen (Ofirmev) 65 mls @ 200 mls/hr IV NOW ONE; Protocol Stop: 04/17/22 04:25 Last Infusion: 04/17/22 05:40 Dose: 0 mls/hr Documented By: Admin: 04/17/22 05:08 Dose: 200 mls/hr Documented By: MT Ceftriaxone Sodium (Rocephin) 1,000 mg in 50 mls @ 100 mls/hr IV NOW STA Stop: 04/17/22 04:37 Last Infusion: 04/17/22 06:43 Dose: 0 mls/hr Documented By: Admin: 04/17/22 06:03 Dose: 100 mls/hr Documented By: MT Lactated Ringer's (Lr) 1,000 mls @ 80 mls/hr IV .[id number] RON Stop: 04/17/22 20:50 Last Admin: 04/17/22 09:34 Dose: 80 mls/hr Documented By: NICOLE Medical Decision Making Differential Diagnosis Differential diagnosis: Etiologies such as shingles, pyelonephritis/UTI, renal colic, appendicitis, diverticulitis, mesenteric ischemia, torsion, aortic pathology, infections, inflammatory bowel disease, bowel obstruction, PUD, biliary pathology, as well as others were entertained. Laboratory Data Result diagrams: 04/17/22 04:20 04/17/22 04:20 Lab Results 04/17/22 04/17/22 04/17/22 Range/Units 04:00 04:20 04:20 WBC 8.58 (4.8-10.8) K/ul RBC 4.57 (3.93-5.22) M/uL Hgb 14.3 (12.0-16.0) g/dl Hct 42.1 (34.1-44.9) % MCV 92.1 (80.0-100.0) fL MCH 31.3 (25.0-34.0) pg MCHC 34.0 (32.0-36.0) g/dL RDW Std Deviation 43.7 (36.4-46.3) fL RDW Coeff of Pb 12.9 (11.5-14.5) % Plt Count 219 (130-400) K/uL MPV 8.7 L (9.4-12.3) fL Immature Gran % (Auto) 0.2 % Neut % (Auto) 81.3 % Lymph % (Auto) 9.8 % [place] % (Auto) 6.2 % Eos % (Auto) 2.2 % Baso % (Auto) 0.3 % Neut # (Auto) 6.97 H (1.4-6.5) K/uL Lymph # (Auto) 0.84 L (1.2-3.4) K/uL [place] # (Auto) 0.53 (0.24-0.82) K/uL Eos # (Auto) 0.19 (0-0.50) K/uL Baso # (Auto) 0.03 (0-0.2) K/uL Immature Gran # (Auto) 0.02 (0.00-0.02) K/uL PT 10.4 (9.0-12.0) Seconds INR 1.0 (0.9-1.1) APTT 25.8 (21.0-31.0) Seconds PTT Ratio 0.9 Sodium (136-145) mmol/L Potassium (3.5-5.1) mmol/L Chloride (98-107) mmol/L Carbon Dioxide (21-32) mmol/L Anion Gap (3-11) BUN (6-23) mg/dl Creatinine (0.6-1.2) mg/dl Est Cr Clr Drug Dosing Est GFR ( Amer) ml/min Est GFR (Non-Af Amer) ml/min BUN/Creatinine Ratio (10-20) Glucose (70-99(Fasting)) mg/dl Lactate (0.4-2.0) mmol/L Calcium (8.5-10.1) mg/dl Magnesium (1.7-2.4) mg/dl Total Bilirubin (0.2-1.0) mg/dl AST (13-39) U/L ALT (7-52) U/L Alkaline Phosphatase (34-104) U/L Troponin I High Sens (0-14) pg/ml B-Natriuretic Peptide (0-100) pg/ml Total Protein (6.0-8.3) gm/dl Albumin (3.4-5.0) gm/dl Globulin (2.5-4.0) gm/dl Albumin/Globulin Ratio (0.9-2) Urine Color Red Urine Appearance Turbid A (Clear) Urine pH 7.5 (4.5-7.5) Ur Specific [place] 1.016 (1.000-1.030) Urine Protein 2+ H (Negative) Urine Glucose (UA) Negative (Negative) Urine Ketones Negative (Negative) Urine Blood 3+ H (Negative) Urine Nitrite Negative (Negative) Urine Bilirubin Negative (Negative) Urine Urobilinogen Negative (Negative) Ur Leukocyte Esterase 2+ H (Negative) Urine WBC (Auto) >30 H (0-5) /hpf Urine RBC (Auto) >30 H (0-4) /hpf U Hyaline Cast (Auto) Not Reportable U Epithel Cells (Auto) 5-10 H (0-5) /lpf Urine Bacteria (Auto) Negative (Negative) Urine Yeast Not Reportable SARS-CoV-2, RNA, NAAT (NEGATIVE) 04/17/22 04/17/22 04/17/22 Range/Units 04:20 04:20 04:53 WBC (4.8-10.8) K/ul RBC (3.93-5.22) M/uL Hgb (12.0-16.0) g/dl Hct (34.1-44.9) % MCV (80.0-100.0) fL MCH (25.0-34.0) pg MCHC (32.0-36.0) g/dL RDW Std Deviation (36.4-46.3) fL RDW Coeff of Pb (11.5-14.5) % Plt Count (130-400) K/uL MPV (9.4-12.3) fL Immature Gran % (Auto) % Neut % (Auto) % Lymph % (Auto) % [place] % (Auto) % Eos % (Auto) % Baso % (Auto) % Neut # (Auto) (1.4-6.5) K/uL Lymph # (Auto) (1.2-3.4) K/uL [place] # (Auto) (0.24-0.82) K/uL Eos # (Auto) (0-0.50) K/uL Baso # (Auto) (0-0.2) K/uL Immature Gran # (Auto) (0.00-0.02) K/uL PT (9.0-12.0) Seconds INR (0.9-1.1) APTT (21.0-31.0) Seconds PTT Ratio Sodium 136 (136-145) mmol/L Potassium 4.0 (3.5-5.1) mmol/L Chloride 102 (98-107) mmol/L Carbon Dioxide 27 (21-32) mmol/L Anion Gap 7 (3-11) BUN 15 (6-23) mg/dl Creatinine 0.62 (0.6-1.2) mg/dl Est Cr Clr Drug Dosing Not Reportable Est GFR ( Amer) 95.3 ml/min Est GFR (Non-Af Amer) 82.2 ml/min BUN/Creatinine Ratio 24.2 H (10-20) Glucose 131 H (70-99(Fasting)) mg/dl Lactate 2.1 H* (0.4-2.0) mmol/L Calcium 10.3 H (8.5-10.1) mg/dl Magnesium 1.9 (1.7-2.4) mg/dl Total Bilirubin 0.4 (0.2-1.0) mg/dl AST 19 (13-39) U/L ALT 16 (7-52) U/L Alkaline Phosphatase 83 (34-104) U/L Troponin I High Sens 4.9 (0-14) pg/ml B-Natriuretic Peptide (0-100) pg/ml Total Protein 7.1 (6.0-8.3) gm/dl Albumin 4.2 (3.4-5.0) gm/dl Globulin 2.9 (2.5-4.0) gm/dl Albumin/Globulin Ratio 1.4 (0.9-2) Urine Color Urine Appearance (Clear) Urine pH (4.5-7.5) Ur Specific [place] (1.000-1.030) Urine Protein (Negative) Urine Glucose (UA) (Negative) Urine Ketones (Negative) Urine Blood (Negative) Urine Nitrite (Negative) Urine Bilirubin (Negative) Urine Urobilinogen (Negative) Ur Leukocyte Esterase (Negative) Urine WBC (Auto) (0-5) /hpf Urine RBC (Auto) (0-4) /hpf U Hyaline Cast (Auto) U Epithel Cells (Auto) (0-5) /lpf Urine Bacteria (Auto) (Negative) Urine Yeast SARS-CoV-2, RNA, NAAT NEGATIVE (NEGATIVE) 04/17/22 Range/Units 04:57 WBC (4.8-10.8) K/ul RBC (3.93-5.22) M/uL Hgb (12.0-16.0) g/dl Hct (34.1-44.9) % MCV (80.0-100.0) fL MCH (25.0-34.0) pg MCHC (32.0-36.0) g/dL RDW Std Deviation (36.4-46.3) fL RDW Coeff of Pb (11.5-14.5) % Plt Count (130-400) K/uL MPV (9.4-12.3) fL Immature Gran % (Auto) % Neut % (Auto) % Lymph % (Auto) % [place] % (Auto) % Eos % (Auto) % Baso % (Auto) % Neut # (Auto) (1.4-6.5) K/uL Lymph # (Auto) (1.2-3.4) K/uL [place] # (Auto) (0.24-0.82) K/uL Eos # (Auto) (0-0.50) K/uL Baso # (Auto) (0-0.2) K/uL Immature Gran # (Auto) (0.00-0.02) K/uL PT (9.0-12.0) Seconds INR (0.9-1.1) APTT (21.0-31.0) Seconds PTT Ratio Sodium (136-145) mmol/L Potassium (3.5-5.1) mmol/L Chloride (98-107) mmol/L Carbon Dioxide (21-32) mmol/L Anion Gap (3-11) BUN (6-23) mg/dl Creatinine (0.6-1.2) mg/dl Est Cr Clr Drug Dosing Est GFR ( Amer) ml/min Est GFR (Non-Af Amer) ml/min BUN/Creatinine Ratio (10-20) Glucose (70-99(Fasting)) mg/dl Lactate (0.4-2.0) mmol/L Calcium (8.5-10.1) mg/dl Magnesium (1.7-2.4) mg/dl Total Bilirubin (0.2-1.0) mg/dl AST (13-39) U/L ALT (7-52) U/L Alkaline Phosphatase (34-104) U/L Troponin I High Sens (0-14) pg/ml B-Natriuretic Peptide 21 (0-100) pg/ml Total Protein (6.0-8.3) gm/dl Albumin (3.4-5.0) gm/dl Globulin (2.5-4.0) gm/dl Albumin/Globulin Ratio (0.9-2) Urine Color Urine Appearance (Clear) Urine pH (4.5-7.5) Ur Specific [place] (1.000-1.030) Urine Protein (Negative) Urine Glucose (UA) (Negative) Urine Ketones (Negative) Urine Blood (Negative) Urine Nitrite (Negative) Urine Bilirubin (Negative) Urine Urobilinogen (Negative) Ur Leukocyte Esterase (Negative) Urine WBC (Auto) (0-5) /hpf Urine RBC (Auto) (0-4) /hpf U Hyaline Cast (Auto) U Epithel Cells (Auto) (0-5) /lpf Urine Bacteria (Auto) (Negative) Urine Yeast SARS-CoV-2, RNA, NAAT (NEGATIVE) Imaging Data Radiologist's Impression: Chest X-Ray 04/17/22 04:05 XR chest 1V portable CLINICAL HISTORY: SEPSIS COMPARISON STUDY: Chest CT February 22, 2018. Chest radiograph February 03, 2022. FINDINGS: Lung volumes are normal. Lungs are clear. There is no pneumothorax or pleural effusion. Mild cardiomegaly is unchanged. Mediastinal contours are normal. There is no evidence for pulmonary edema. IMPRESSION: No acute cardiopulmonary findings. No change in appearance of the chest. ACT 112: Negative or not required by law. Electronically signed by: Munir López M.D. 04/17/2022 7:[address] [facility] Narrative Physical exam and history were performed. Nursing notes, EMR, and Medication List were personally reviewed. Patient appears to have hematuria bring her to the ER. She does have a low- grade fever and is slightly tachycardic on arrival. IV access was established and labs were obtained. Blood cultures were gathered. She has some nonspecific breathing/coughing difficulty. The patient was gently hydrated with saline as to not fluid overload her. She was given IV Tylenol. I did review previous urine cultures, and she did have a pansensitive E. coli in June of last year, and I will start her on Rocephin empirically. The patient's blood work is as above and was reviewed. She does not have a significantly elevated white blood cell count, gross anemia, bandemia, or significant electrolyte imbalance. Transaminases are not diagnostic. Lactic acid is slightly elevated at 2.1. Urine is with gross hematuria and is highly suggestive of infection. Review of the EMR shows the patient did have CT scan earlier this year of her abdomen and pelvis and did not have renal carcinoma to warrant further imaging. The case was discussed with my attending, Dr. Centeno, who also independently evaluated the patient. Overall the patient does not appear well for discharge home. Her vital signs did normalize with some fluids and some Tylenol. She certainly could be developing sepsis, and the case was discussed with the on- call hospitalist team who agreed to evaluate the patient here in the ER. Please see their dictation for further patient course, plan, and disposition. The chart was completed utilizing [employer] Speech Voice Recognition Software. Grammatical errors, random word insertions, pronoun errors, and incomplete sentences are an occasional consequence of this system due to software limitations, ambient noise, and hardware issues. Any formal questions or concerns about the content, text, or information contained within the body of this dictation should be directly addressed to the provider for clarification. . Impression & Plan Urinary tract infection, Fever Discharge Plan Visit Data Chief Complaint: Hematuria Stated Complaint: BLOOD IN URINE,SOB,FEVER,COUGH W/ PHLEGM ED Provider: Estrella Centeno ED Midlevel Provider: Rex Cool Discharge Problem: Urinary tract infection, Fever Patient Disposition: Admitted As Inpatient Discharge Instructions Interventions: ED Discharge Assessment Last Done: 04/17/22 07:53
--- NOTE | 2022-04-17 06:08 | Emergency Department Note ---
ED Visit Note I was consulted by the Advanced Practice Provider. I saw the patient personally and performed a substantive portion of the visit. This includes aspects of the HPI, MDM, diagnostic interpretations, and disposition/plan. .
--- NOTE | 2022-04-17 06:54 | History & Physical Report ---
Date of Service April 17, 2022 Assessment & Plan (1) Hematuria: Plan: 86yo female presenting with 2-3 days of dysuria, 1 day of gross hematuria with reported passage of clots. Chronic back pain but no new flank pain reported. No history of renal stones (patie ntdid have a CT of the abdomen and Pelvis performed on 02/04/22 which did not show renal stones or mass). UA suggestive of inflammation, no bacteria. Given new symptom of hematuria and suspicious UA will treat for acute uncomplicated UTI. Patient has had culture with castellanos-sensitive E.coli in the past. Hbg is normal. -Follow urine culture -Ceftriaxone 1gm IV daily -Tylenol PRN pain or fever -Bladder scan q shift and PRN to assess for urinary retention -Straight cath as needed -Consider Urology consultation -Monitor H/H -Hold ASA for now (2) Shortness of breath: Plan: Patient reports 2-3 weeks of MAY as well as dyspnea with laying flat. Cough productive for yellow sputum. BNP is within normal limits. CXR with no obvious edema or infiltrate. Pulmonary exam is significant for diffuse end-expiratory wheezing as well as rhonchi in the right base that clears with coughing. Saturations are adequate on room air. ?acute bronchitis most likely viral in nature. -Albuterol PRN -Robitussin PRN -Repeat CXR in AM after hydration to assess for developing infiltrate (3) Hypothyroidism: Plan: Chronic. Stable on Synthroid. Last TSH on 12/25/21 WNL at 1.478 -Continue Synthroid (4) Hypertension: Plan: Blood pressure appropriately controlled without medications -Continue to monitor LR at 80mL/hr x 1 liter Miralax 17gm scheduled for complaint of constipation Full Code per discussion with patient History of Present Illness Chief Complaint: dysuria, hematuria SOB and wheeze Primary Care Provider: Peter Guardado DO Roseanna Covarrubias is an 86yo female with history of HTN, HLP, Hypothyroidism, GERD and Glaucoma presenting with 2-3 day history of dysuria and 1 day of gross hematuria with passage of clots. Patient feels that her urinary stream is slow at times but has not had retention. She denies suprapubic or flank pain. Also with 2-3 weeks of dyspnea at rest and with exertion, wheeze and cough productive for yellow phlegm. She reports difficulty taking a deep breath due to cough. She has had poor appetite and decreased oral intake for the last day. No additional complaints at this time -she denies chest pain, palpitations, abdominal pain, nausea, vomiting or diarrhea. She has some mild constipation. In the ER patient with elevated temperature of 37.6, tachycardic at 110bpm. Her initial lactic acid level was elevated slightly at 2.1. ER Course: NSS x 500mL, Ceftriaxone, Tylenol Allergies Allergy/AdvReac Type Severity Reaction Status Date / Time timolol Allergy Mild Swelling Verified 02/03/22 14:18 brimonidine Allergy Unknown SWELLING Verified 02/03/22 14:18 ON FACE lisinopril Allergy Unknown HEART RATE Verified 02/03/22 14:18 DROPPED/TIRED adhesive Allergy Verified 02/03/22 14:18 amlodipine Allergy Verified 02/03/22 14:18 labetalol Allergy Verified 02/03/22 14:18 ezetimibe AdvReac Mild Exhausted Verified 02/03/22 14:18 losartan AdvReac Unknown SEVERE Verified 02/03/22 14:18 BACK PAIN benzonatate AdvReac eye Verified 02/03/22 14:18 pressure methocarbamol AdvReac itching Verified 02/03/22 14:18 Home Medications Medication Instructions Recorded Confirmed Type cholecalciferol (vitamin D3) 50 2,000 units PO HS #30 tabs 05/29/19 04/17/22 History mcg (2,000 unit) tablet travoprost 0.004 % eye drops 1 drops ophthalmic (eye) HS 05/29/19 04/17/22 History aspirin 81 mg tablet,delayed 81 mg PO HS 07/19/19 04/17/22 History release (Zoey Low Dose Aspirin) TENS unit and electrodes combo pack #1 ea 11/06/19 02/03/22 Rx levothyroxine 50 mcg tablet 50 mcg PO QAM 90 days #90 tabs 06/08/21 04/17/22 Rx cyclobenzaprine 5 mg tablet 5 mg PO TID PRN muscle spasm and 02/03/22 02/03/22 Rx back pain #30 tabs prednisone 20 mg tablet 20 mg PO DAILY #5 tabs 02/03/22 02/03/22 Rx Past Med/Surg History Medical History Chronic low back pain Gastroesophageal reflux disease Glaucoma History of vertebral compression fracture Hyperlipidemia Hypertension Hypothyroidism Osteoporosis Sensorineural hearing loss (SNHL) of both ears Vitamin D deficiency Surgical History History of wisdom tooth extraction S/P tonsillectomy Family History Daughter Bipolar disorder Schizophrenia Sister Bipolar disorder Brother Systemic lupus erythematosus Unknown Breast cancer Colorectal cancer Lung cancer Ovarian cancer Prostate cancer Uncle Parkinson disease Other Adopted Denies family history of Glaucoma Social History Smoking Status: Never smoker Second Hand Exposure: No; Hx Alcohol Use: No Hx Substance Use: No Preferred Language: Greek Communication Ability: Effective Visual Impairment: Limited Hearing Ability: Use of Hearing Aid Household Cook Required: No marital status: Current Living Situation: Spouse current occupational status: retired current occupation: foreign language instructor at [employer] How many Children do You have: 4 Feels Safe at Home: Yes Childhood Exposure to Second-Hand Smoke: No caffeine: Yes Dental Care, Regularly: Yes Physical Activity Frequency: Daily Seatbelt Use: always Sunscreen Use: No Review of Systems Review of Systems: All systems reviewed & are unremarkable except as noted in HPI & below Physical Exam Physical Exam: General: patient resting comfortably, NAD, non-toxic in appearance, AA&O x 4 Skin: warm, dry, intact, no rashes or lesions HEENT: NC/AT, PERRL, EOMI, anicteric sclera, conjunctiva without injection, external ear normal to inspection and nontender, nares patent, moist mucus membranes, dentition intact, no oropharyngeal lesions, neck supple, trachea midline, no LAD, no thyromegaly, no JVD Heart: +S1/S2, regular, no m/r/g Lungs: equal air entry bilaterally, soft rhonchi and right base cleared with coughing, diffuse end-expiratory wheezing in bilateral lung hair Abd: +BS, soft, NT/ND, no masses/organomegaly/ascites Ext: warm, 2+ pulses in UE/LE bilaterally, no clubbing/cyanosis or edema Neuro: nonfocal, patient AA&O x 4, speech intact, no facial droop, moving all extremities on command with equal strength 5/5 Results & Data Results & [facility] ([facility]) Vital Signs (Past 12 Hours) Vital Signs Temp Pulse Resp BP Pulse Ox O2 Del Method 04/17/22 06:15 83 19 131/82 92 04/17/22 06:00 79 20 134/78 94 04/17/22 05:45 84 20 142/87 H 92 04/17/22 05:30 79 21 134/83 91 04/17/22 05:15 93 H 18 146/93 H 94 04/17/22 06:00 20 92 Room Air 04/17/22 05:30 20 93 Room Air 04/17/22 05:05 94 Room Air 04/17/22 05:00 91 H 24 147/93 H 92 04/17/22 04:45 98 H 25 H 94 04/17/22 04:35 93 Room Air 04/17/22 04:05 20 93 Room Air 04/17/22 04:33 95 H 20 147/93 H 93 04/17/22 03:48 37.6 C H 110 H 18 161/98 H 93 Room Air Laboratory Results Laboratory Results WBC 8.58 K/ul (4.8-10.8) 04/17/22 04:20 RBC 4.57 M/uL (3.93-5.22) 04/17/22 04:20 Hgb 14.3 g/dl (12.0-16.0) 04/17/22 04:20 Hct 42.1 % (34.1-44.9) 04/17/22 04:20 MCV 92.1 fL (80.0-100.0) 04/17/22 04:20 MCH 31.3 pg (25.0-34.0) 04/17/22 04:20 MCHC 34.0 g/dL (32.0-36.0) 04/17/22 04:20 RDW Std Deviation 43.7 fL (36.4-46.3) 04/17/22 04:20 RDW Coeff of Pb 12.9 % (11.5-14.5) 04/17/22 04:20 Plt Count 219 K/uL (130-400) 04/17/22 04:20 MPV 8.7 fL (9.4-12.3) L 04/17/22 04:20 Immature Gran % (Auto) 0.2 % 04/17/22 04:20 Neut % (Auto) 81.3 % 04/17/22 04:20 Lymph % (Auto) 9.8 % 04/17/22 04:20 [place] % (Auto) 6.2 % 04/17/22 04:20 Eos % (Auto) 2.2 % 04/17/22 04:20 Baso % (Auto) 0.3 % 04/17/22 04:20 Neut # (Auto) 6.97 K/uL (1.4-6.5) H 04/17/22 04:20 Lymph # (Auto) 0.84 K/uL (1.2-3.4) L 04/17/22 04:20 [place] # (Auto) 0.53 K/uL (0.24-0.82) 04/17/22 04:20 Eos # (Auto) 0.19 K/uL (0-0.50) 04/17/22 04:20 Baso # (Auto) 0.03 K/uL (0-0.2) 04/17/22 04:20 Immature Gran # (Auto) 0.02 K/uL (0.00-0.02) 04/17/22 04:20 PT 10.4 Seconds (9.0-12.0) 04/17/22 04:20 INR 1.0 (0.9-1.1) 04/17/22 04:20 APTT 25.8 Seconds (21.0-31.0) 04/17/22 04:20 PTT Ratio 0.9 04/17/22 04:20 Sodium 136 mmol/L (136-145) 04/17/22 04:20 Potassium 4.0 mmol/L (3.5-5.1) 04/17/22 04:20 Chloride 102 mmol/L (98-107) 04/17/22 04:20 Carbon Dioxide 27 mmol/L (21-32) 04/17/22 04:20 Anion Gap 7 (3-11) 04/17/22 04:20 BUN 15 mg/dl (6-23) 04/17/22 04:20 Creatinine 0.62 mg/dl (0.6-1.2) 04/17/22 04:20 Est Cr Clr Drug Dosing Not Reportable 04/17/22 04:20 Est GFR ( Amer) 95.3 ml/min 04/17/22 04:20 Est GFR (Non-Af Amer) 82.2 ml/min 04/17/22 04:20 BUN/Creatinine Ratio 24.2 (10-20) H 04/17/22 04:20 Glucose 131 mg/dl (70-99(Fasting)) H 04/17/22 04:20 Lactate 2.1 mmol/L (0.4-2.0) H* 04/17/22 04:20 Calcium 10.3 mg/dl (8.5-10.1) H 04/17/22 04:20 Magnesium 1.9 mg/dl (1.7-2.4) 04/17/22 04:20 Total Bilirubin 0.4 mg/dl (0.2-1.0) 04/17/22 04:20 AST 19 U/L (13-39) 04/17/22 04:20 ALT 16 U/L (7-52) 04/17/22 04:20 Alkaline Phosphatase 83 U/L (34-104) 04/17/22 04:20 Troponin I High Sens 4.9 pg/ml (0-14) 04/17/22 04:20 B-Natriuretic Peptide 21 pg/ml (0-100) 04/17/22 04:57 Total Protein 7.1 gm/dl (6.0-8.3) 04/17/22 04:20 Albumin 4.2 gm/dl (3.4-5.0) 04/17/22 04:20 Globulin 2.9 gm/dl (2.5-4.0) 04/17/22 04:20 Albumin/Globulin Ratio 1.4 (0.9-2) 04/17/22 04:20 Urine Color Red 04/17/22 04:00 Urine Appearance Turbid (Clear) A 04/17/22 04:00 Urine pH 7.5 (4.5-7.5) 04/17/22 04:00 Ur Specific [place] 1.016 (1.000-1.030) 04/17/22 04:00 Urine Protein 2+ (Negative) H 04/17/22 04:00 Urine Glucose (UA) Negative (Negative) 04/17/22 04:00 Urine Ketones Negative (Negative) 04/17/22 04:00 Urine Blood 3+ (Negative) H 04/17/22 04:00 Urine Nitrite Negative (Negative) 04/17/22 04:00 Urine Bilirubin Negative (Negative) 04/17/22 04:00 Urine Urobilinogen Negative (Negative) 04/17/22 04:00 Ur Leukocyte Esterase 2+ (Negative) H 04/17/22 04:00 Urine WBC (Auto) >30 /hpf (0-5) H 04/17/22 04:00 Urine RBC (Auto) >30 /hpf (0-4) H 04/17/22 04:00 U Hyaline Cast (Auto) Not Reportable 04/17/22 04:00 U Epithel Cells (Auto) 5-10 /lpf (0-5) H 04/17/22 04:00 Urine Bacteria (Auto) Negative (Negative) 04/17/22 04:00 Urine Yeast Not Reportable 04/17/22 04:00 SARS-CoV-2, RNA, NAAT NEGATIVE (NEGATIVE) 04/17/22 04:53 PG Care Time/CCT Total # of Minutes Spent Total Time Spent with Patient: Total time spent is greater than 50% in coordination of care (as documented) at patient's floor/unit and/or counseling patient: Coding Level of Care Code 33790 Initial Inpt Care Lvl 2 Diagnoses Hematuria R31.9 Shortness of breath R06.02 Hypothyroidism E03.9 Hypertension I10
--- NOTE | 2022-04-17 07:09 | XRay Report ---
XR chest 1V portable CLINICAL HISTORY: SEPSIS COMPARISON STUDY: Chest CT February 22, 2018. Chest radiograph February 03, 2022. FINDINGS: Lung volumes are normal. Lungs are clear. There is no pneumothorax or pleural effusion. Mil d cardiomegaly is unchanged. Mediastinal contours are normal. There is no evidence for pulmonary lamont a. IMPRESSION: No acute cardiopulmonary findings. No change in appearance of the chest. ACT 112: Negative or not required by law. Electronically signed by: Munir López M.D. 04/17/2022 7:07 AM
[2022-04-17] MEDS ORDERED: guaiFENesin/DEXTROM SYRUP 100MG/10MG 5ML UDC PO PRN (08:21)
[2022-04-17] MEDS ORDERED: ONDANSETRON INJ 2 MG/ML 2 ML VIAL IV PRN (08:21)
[2022-04-17] MEDS ORDERED: ACETAMINOPHEN 325 MG TAB PO PRN (08:21)
[2022-04-17] MEDS ORDERED: LACTATED RINGER'S 1,000 ML IV SCH (08:21)
[2022-04-17] MEDS: LEVOTHYROXINE SODIUM 50 MCG TABLET PO SCH (09:40)
[2022-04-17] MEDS: POLYETHYLENE (MIRALAX) 17 GM PACK PO SCH (09:40)
[2022-04-17] MEDS: ALBUTEROL HFA 8 GM INHALER INH SCH ×5 (11:13→23:19)
--- NOTE | 2022-04-17 14:32 | Hospitalist Progress Note ---
Date of Service April 17, 2022 Assessment & Plan (1) Hematuria: Plan: 86 yo F with PMHx of HTN, HLD, Hypothyroidism, GERD, and Glaucoma presenting with 2-3 day history of dysuria and 1 day of gross hematuria with passage of clots. Hematuria Chronic back pain but no new flank pain reported.No history of renal stones (did have a CT abd/pelv performed on 02/04/22 which did not show renal stones or mass). UA suggestive of inflammation, no bacteria. Given new symptom of hematuria and suspicious UA will treat for acute uncomplicated UTI. Patient has had culture with castellanos-sensitive E.coli in the past. -Hbg is normal. -urine cx pending -cont. Ceftriaxone 1gm IV daily -Tylenol PRN pain or fever -Bladder scan q shift and PRN to assess for urinary retention -Straight cath as needed -Consider Urology consultation if culture negative -Monitor H/H -Hold ASA for now -consider renal/bladder US tomorrow if urine culture neg Shortness of breath Patient reports 2-3 weeks of MAY as well as dyspnea with laying flat. Cough productive for yellow sputum. BNP is within normal limits. CXR with no obvious edema or infiltrate.Pulmonary exam is significant for diffuse end-expiratory wheezing as well as rhonchi in the right base that clears with coughing.Saturations are adequate on room air. ?acute bronchitis most likely viral in nature. -Albuterol FATOU -Robitussin PRN - Tessalon PRN -maintenance LRs 80mLs -Repeat CXR in AM after hydration to assess for developing infiltrate, covered for CAP with ceftriaxone as above Hypothyroidism Chronic.Stable on Synthroid.Last TSH on 12/25/21 WNL at 1.478 -Continue Synthroid Hypertension Blood pressure appropriately controlled without medications -Continue to monitor Glaucoma -cont. travoprost drops Constipation -fatou. miralax DVT ppx: SCDs FEN/GI: LRs 80mLs, HH Code Status: Full Dispo: med surg (2) Shortness of breath: (3) Hypothyroidism: (4) Hypertension: Admission and Anticipated Discharge Date Admission Date: April 17, 2022 Supervising Physician Co-Signing Physician Notes Patient seen and examined with PGY-2 Dr. Veronica. Agree with history, exam findings, assessment and plan of care as outlined. In brief, Ms Covarrubias is an 86 year old female with history of hypertension, hypothyroid and glaucoma admitted with gross hematuria (associated with urinary frequency and bladder pain) and shortness of breath. Today, she continues to have some wet sounding cough. Has not needed supplemental oxygen. Prior to moving to the general medical floor, she did have gross hematuria with clots in the emergency room. But most recent urination was clear, yellow. No flank pain. No fevers, chills. Dyspnea has been ongoing for a couple of weeks. Does not get worse with exertion--she walks on the treadmill regularly. VS and nursing notes reviewed. Nontoxic appearing elderly woman. Heart with regular rate and rhythm. Systolic murmur. No edema. Lungs with slight end expiratory wheezing. Coarse breath sounds. Abdomen is soft, minimal tenderness in the LLQ. Labs and imaging reviewed. 1. gross hematuria. urine with leuk esterase, blood. Microscopic without bacteria. Culture pending. Treating as hemorrhagic cystitis for now with ceftriaxone. However, if culture does now grow bacteria, consider other causes and check renal/bladder ultrasound +/- urology consult. Blood cultures pending as well. 2. cough, dyspnea, orthopnea. Viral bronchitis vs CAP. Initial chest xray was unremarkable. Will repeat CXR in the AM or if requires supplemental O2. Albuterol PRN, Robitussin PRN, tessalon PRN. 3. HTN. Blood pressures are appropriate for age without anti-hypertensives. 4. Systolic murmur. Likely aortic stenosis. Doubtful that this is contributing to current cough/dyspnea. Echo in June 2021 without significant aortic valve pathology. Dispo: pending clinical improvement. Subjective Patient seen at bedside this morning. Doing well since admission. Her last void was clear yellow without hematuria but does endorse having hematuria with clots in the ED. Was also having symptoms of urinary frequency and dysuria prior to admission. No h/o hematuria otherwise. In terms of her breathing, says she has periodic episodes of SOB over the last few years without any diagnosis of lung disease. Never smoker. Denies fever, FIERRO, N/V, chest pain, SOB. Review of Systems Review of Systems: All systems reviewed & are unremarkable except as noted in HPI & below Physical Exam Physical Exam: General:resting comfortably, NAD, non-toxic in appearance, awake, AOx3 HEENT: NCAT, EOMI, anicteric sclera, conjunctiva without injection, moist mucus membranes, no JVD Heart: RRR, +systolic murmur, +S1/S2 Lungs: equal air entry bilaterally, soft rhonchi R lower lung improved with coughing, diffuse end-expiratory wheezing in bilateral lung hair Abd: +BS, soft, mildly tender LLQ, nondistended. Neuro: nonfocal, speech intact, no facial droop Skin: warm, dry, no rashes. Results & Data Results & Data ([facility]) Vital Signs (Past 12 Hours) Vital Signs Temp Pulse Pulse Resp BP BP Pulse Ox 04/17/22 14:16 66 18 93 04/17/22 11:27 04/17/22 11:15 68 18 94 04/17/22 09:53 36.5 C 73 16 166/83 H 94 04/17/22 08:10 36.5 C 73 16 166/83 H 94 04/17/22 07:53 75 18 94 04/17/22 07:25 16 94 04/17/22 07:24 80 16 94 04/17/22 07:21 76 20 143/80 H 93 04/17/22 06:15 83 19 131/82 92 04/17/22 06:00 79 20 134/78 94 04/17/22 05:45 84 20 142/87 H 92 04/17/22 05:30 79 21 134/83 91 04/17/22 05:15 93 H 18 146/93 H 94 04/17/22 06:00 20 92 04/17/22 05:30 20 93 04/17/22 05:05 94 04/17/22 05:00 91 H 24 147/93 H 92 04/17/22 04:45 98 H 25 H 94 04/17/22 04:35 93 04/17/22 04:05 20 93 04/17/22 04:33 95 H 20 147/93 H 93 04/17/22 03:48 37.6 C H 110 H 18 161/98 H 93 O2 Del Method 04/17/22 14:16 Room Air 04/17/22 11:27 Room Air 04/17/22 11:15 Room Air 04/17/22 09:53 Room Air 04/17/22 08:10 Room Air 04/17/22 07:53 Room Air 04/17/22 07:25 Room Air 04/17/22 07:24 Room Air 07/30/22 07:21 Room Air 04/17/22 06:15 04/17/22 06:00 04/17/22 05:45 04/17/22 05:30 04/17/22 05:15 04/17/22 06:00 Room Air 04/17/22 05:30 Room Air 04/17/22 05:05 Room Air 04/17/22 05:00 04/17/22 04:45 04/17/22 04:35 Room Air 04/17/22 04:05 Room Air 04/17/22 04:33 04/17/22 03:48 Room Air Laboratory Results 04/17/22 04/17/22 04/17/22 Range/Units 07:06 04:57 04:53 WBC (4.8-10.8) K/ul RBC (3.93-5.22) M/uL Hgb (12.0-16.0) g/dl Hct (34.1-44.9) % MCV (80.0-100.0) fL MCH (25.0-34.0) pg MCHC (32.0-36.0) g/dL RDW Std Deviation (36.4-46.3) fL RDW Coeff of Pb (11.5-14.5) % Plt Count (130-400) K/uL MPV (9.4-12.3) fL Immature Gran % (Auto) % Neut % (Auto) % Lymph % (Auto) % [place] % (Auto) % Eos % (Auto) % Baso % (Auto) % Neut # (Auto) (1.4-6.5) K/uL Lymph # (Auto) (1.2-3.4) K/uL [place] # (Auto) (0.24-0.82) K/uL Eos # (Auto) (0-0.50) K/uL Baso # (Auto) (0-0.2) K/uL Immature Gran # (Auto) (0.00-0.02) K/uL PT (9.0-12.0) Seconds INR (0.9-1.1) APTT (21.0-31.0) Seconds PTT Ratio Sodium (136-145) mmol/L Potassium (3.5-5.1) mmol/L Chloride (98-107) mmol/L Carbon Dioxide (21-32) mmol/L Anion Gap (3-11) BUN (6-23) mg/dl Creatinine (0.6-1.2) mg/dl Est Cr Clr Drug Dosing Est GFR ( Amer) ml/min Est GFR (Non-Af Amer) ml/min BUN/Creatinine Ratio (10-20) Glucose (70-99(Fasting)) mg/dl Lactate 1.3 (0.4-2.0) mmol/L Calcium (8.5-10.1) mg/dl Magnesium (1.7-2.4) mg/dl Total Bilirubin (0.2-1.0) mg/dl AST (13-39) U/L ALT (7-52) U/L Alkaline Phosphatase (34-104) U/L Troponin I High Sens (0-14) pg/ml B-Natriuretic Peptide 21 (0-100) pg/ml Total Protein (6.0-8.3) gm/dl Albumin (3.4-5.0) gm/dl Globulin (2.5-4.0) gm/dl Albumin/Globulin Ratio (0.9-2) Urine Color Urine Appearance (Clear) Urine pH (4.5-7.5) Ur Specific [place] (1.000-1.030) Urine Protein (Negative) Urine Glucose (UA) (Negative) Urine Ketones (Negative) Urine Blood (Negative) Urine Nitrite (Negative) Urine Bilirubin (Negative) Urine Urobilinogen (Negative) Ur Leukocyte Esterase (Negative) Urine WBC (Auto) (0-5) /hpf Urine RBC (Auto) (0-4) /hpf U Hyaline Cast (Auto) U Epithel Cells (Auto) (0-5) /lpf Urine Bacteria (Auto) (Negative) Urine Yeast SARS-CoV-2, RNA, NAAT NEGATIVE (NEGATIVE) 04/17/22 04/17/22 04/17/22 Range/Units 04:20 04:20 04:20 WBC (4.8-10.8) K/ul RBC (3.93-5.22) M/uL Hgb (12.0-16.0) g/dl Hct (34.1-44.9) % MCV (80.0-100.0) fL MCH (25.0-34.0) pg MCHC (32.0-36.0) g/dL RDW Std Deviation (36.4-46.3) fL RDW Coeff of Pb (11.5-14.5) % Plt Count (130-400) K/uL MPV (9.4-12.3) fL Immature Gran % (Auto) % Neut % (Auto) % Lymph % (Auto) % [place] % (Auto) % Eos % (Auto) % Baso % (Auto) % Neut # (Auto) (1.4-6.5) K/uL Lymph # (Auto) (1.2-3.4) K/uL [place] # (Auto) (0.24-0.82) K/uL Eos # (Auto) (0-0.50) K/uL Baso # (Auto) (0-0.2) K/uL Immature Gran # (Auto) (0.00-0.02) K/uL PT 10.4 (9.0-12.0) Seconds INR 1.0 (0.9-1.1) APTT 25.8 (21.0-31.0) Seconds PTT Ratio 0.9 Sodium 136 (136-145) mmol/L Potassium 4.0 (3.5-5.1) mmol/L Chloride 102 (98-107) mmol/L Carbon Dioxide 27 (21-32) mmol/L Anion Gap 7 (3-11) BUN 15 (6-23) mg/dl Creatinine 0.62 (0.6-1.2) mg/dl Est Cr Clr Drug Dosing Not Reportable Est GFR ( Amer) 95.3 ml/min Est GFR (Non-Af Amer) 82.2 ml/min BUN/Creatinine Ratio 24.2 H (10-20) Glucose 131 H (70-99(Fasting)) mg/dl Lactate 2.1 H* (0.4-2.0) mmol/L Calcium 10.3 H (8.5-10.1) mg/dl Magnesium 1.9 (1.7-2.4) mg/dl Total Bilirubin 0.4 (0.2-1.0) mg/dl AST 19 (13-39) U/L ALT 16 (7-52) U/L Alkaline Phosphatase 83 (34-104) U/L Troponin I High Sens 4.9 (0-14) pg/ml B-Natriuretic Peptide (0-100) pg/ml Total Protein 7.1 (6.0-8.3) gm/dl Albumin 4.2 (3.4-5.0) gm/dl Globulin 2.9 (2.5-4.0) gm/dl Albumin/Globulin Ratio 1.4 (0.9-2) Urine Color Urine Appearance (Clear) Urine pH (4.5-7.5) Ur Specific [place] (1.000-1.030) Urine Protein (Negative) Urine Glucose (UA) (Negative) Urine Ketones (Negative) Urine Blood (Negative) Urine Nitrite (Negative) Urine Bilirubin (Negative) Urine Urobilinogen (Negative) Ur Leukocyte Esterase (Negative) Urine WBC (Auto) (0-5) /hpf Urine RBC (Auto) (0-4) /hpf U Hyaline Cast (Auto) U Epithel Cells (Auto) (0-5) /lpf Urine Bacteria (Auto) (Negative) Urine Yeast SARS-CoV-2, RNA, NAAT (NEGATIVE) 04/17/22 04/17/22 Range/Units 04:20 04:00 WBC 8.58 (4.8-10.8) K/ul RBC 4.57 (3.93-5.22) M/uL Hgb 14.3 (12.0-16.0) g/dl Hct 42.1 (34.1-44.9) % MCV 92.1 (80.0-100.0) fL MCH 31.3 (25.0-34.0) pg MCHC 34.0 (32.0-36.0) g/dL RDW Std Deviation 43.7 (36.4-46.3) fL RDW Coeff of Pb 12.9 (11.5-14.5) % Plt Count 219 (130-400) K/uL MPV 8.7 L (9.4-12.3) fL Immature Gran % (Auto) 0.2 % Neut % (Auto) 81.3 % Lymph % (Auto) 9.8 % [place] % (Auto) 6.2 % Eos % (Auto) 2.2 % Baso % (Auto) 0.3 % Neut # (Auto) 6.97 H (1.4-6.5) K/uL Lymph # (Auto) 0.84 L (1.2-3.4) K/uL [place] # (Auto) 0.53 (0.24-0.82) K/uL Eos # (Auto) 0.19 (0-0.50) K/uL Baso # (Auto) 0.03 (0-0.2) K/uL Immature Gran # (Auto) 0.02 (0.00-0.02) K/uL PT (9.0-12.0) Seconds INR (0.9-1.1) APTT (21.0-31.0) Seconds PTT Ratio Sodium (136-145) mmol/L Potassium (3.5-5.1) mmol/L Chloride (98-107) mmol/L Carbon Dioxide (21-32) mmol/L Anion Gap (3-11) BUN (6-23) mg/dl Creatinine (0.6-1.2) mg/dl Est Cr Clr Drug Dosing Est GFR ( Amer) ml/min Est GFR (Non-Af Amer) ml/min BUN/Creatinine Ratio (10-20) Glucose (70-99(Fasting)) mg/dl Lactate (0.4-2.0) mmol/L Calcium (8.5-10.1) mg/dl Magnesium (1.7-2.4) mg/dl Total Bilirubin (0.2-1.0) mg/dl AST (13-39) U/L ALT (7-52) U/L Alkaline Phosphatase (34-104) U/L Troponin I High Sens (0-14) pg/ml B-Natriuretic Peptide (0-100) pg/ml Total Protein (6.0-8.3) gm/dl Albumin (3.4-5.0) gm/dl Globulin (2.5-4.0) gm/dl Albumin/Globulin Ratio (0.9-2) Urine Color Red Urine Appearance Turbid A (Clear) Urine pH 7.5 (4.5-7.5) Ur Specific [place] 1.016 (1.000-1.030) Urine Protein 2+ H (Negative) Urine Glucose (UA) Negative (Negative) Urine Ketones Negative (Negative) Urine Blood 3+ H (Negative) Urine Nitrite Negative (Negative) Urine Bilirubin Negative (Negative) Urine Urobilinogen Negative (Negative) Ur Leukocyte Esterase 2+ H (Negative) Urine WBC (Auto) >30 H (0-5) /hpf Urine RBC (Auto) >30 H (0-4) /hpf U Hyaline Cast (Auto) Not Reportable U Epithel Cells (Auto) 5-10 H (0-5) /lpf Urine Bacteria (Auto) Negative (Negative) Urine Yeast Not Reportable SARS-CoV-2, RNA, NAAT (NEGATIVE) Resident Activity Tracking Resident Involvement: Resident Care Provided Care Provided: Adult Hospital Medicine
[2022-04-17] MEDS ORDERED: TRAVOPROST Z 0.004% OPH SOLN 2.5 ML BTL OP SCH (21:00)
[2022-04-18] MEDS: ALBUTEROL HFA 8 GM INHALER INH SCH ×4 (03:22→14:42)
[2022-04-18] MEDS: LEVOTHYROXINE SODIUM 50 MCG TABLET PO SCH (05:56)
[2022-04-18] MEDS ORDERED: cefTRIAXone SODIUM 1,000 MG in DEXTROSE 5% 50 ML IV SCH (06:00)
--- NOTE | 2022-04-18 07:13 | XRay Report ---
XR chest 1V portable HISTORY: 86 years-old Female wheezing, SOB acute wheezing with shortness of breath COMPARISON: 04/17/2022 TECHNIQUE: Portable AP view of the chest FINDINGS: Cardiomediastinal and hilar silhouettes are within normal limits. No pneumothorax, pleural effusion, airspace consolidation or overt pulmonary edema. Unchanged opacity of the medial right lung base sugg estive of a prominent epicardial fat pad. Bones of the chest appear grossly intact. IMPRESSION: No acute process. ACT 112: Negative or not required by law. The above report was generated using voice recognition software. It may contain grammatical, syntax o r spelling errors. Electronically signed by: Leoncio Kay M.D. 04/18/2022 7:12 AM
--- NOTE | 2022-04-18 07:40 | Hospitalist Progress Note ---
Date of Service April 18, 2022 Assessment & Plan (1) Hematuria: Plan: 86 yo F with PMHx of HTN, HLD, Hypothyroidism, GERD, and Glaucoma presenting with 2-3 day history of dysuria and 1 day of gross hematuria with passage of clots. Uncomplicated UTI Hematuria, resolved Chronic back pain but no new flank pain reported.No history of renal stones (did have a CT abd/pelv performed on 02/04/22 which did not show renal stones or mass). -Hbg is normal -UA suggestive of inflammation, no bacteria. -blood cx pending -urine cx grew E. coli, sensitivities pending; has had culture with castellanos- sensitive E.coli in the past -cont. Ceftriaxone 1gm IV daily -Tylenol PRN pain or fever -Bladder scan q shift and PRN to assess for urinary retention -Straight cath as needed -Hold ASA for now -consider renal/bladder US if no improvement Shortness of breath Patient reports 2-3 weeks of MAY as well as dyspnea with laying flat. Cough productive for yellow sputum. BNP is within normal limits. CXR with no obvious edema or infiltrate.Pulmonary exam is significant for diffuse end-expiratory wheezing as well as rhonchi in the right base that clears with coughing.Saturations are adequate on room air. ?acute bronchitis most likely v iral in nature. -cont. Albuterol FATOU -Robitussin PRN -IVF d/c'd (04/17) -Repeat CXR: no acute process Hypothyroidism Chronic.Stable on Synthroid.Last TSH on 12/25/21 WNL at 1.478 -Continue Synthroid Hypertension Blood pressure appropriately controlled without medications -Continue to monitor Glaucoma -cont. travoprost drops Constipation -fatou. miralax DVT ppx: SCDs FEN/GI: HH Code Status: Full Dispo: med surg (2) Shortness of breath: (3) Hypothyroidism: (4) Hypertension: Admission and Anticipated Discharge Date Admission Date: April 17, 2022 Subjective Patient seen at bedside this morning. Doing well since admission. Her last void was clear yellow without hematuria but does endorse having hematuria with clots in the ED. Was also having symptoms of urinary frequency and dysuria prior to admission. No h/o hematuria otherwise. In terms of her breathing, says she has periodic episodes of SOB over the last few years without any diagnosis of lung disease. Never smoker. Denies fever, FIERRO, N/V, chest pain, SOB. Review of Systems Review of Systems: All systems reviewed & are unremarkable except as noted in HPI & below Physical Exam Physical Exam: General:resting comfortably, NAD, non-toxic in appearance, awake, AOx3 HEENT: NCAT, EOMI, anicteric sclera, conjunctiva without injection, moist mucus membranes, no JVD Heart: RRR, +systolic murmur, +S1/S2 Lungs: equal air entry bilaterally, soft rhonchi R lower lung improved with coughing, diffuse end-expiratory wheezing in bilateral lung hair Abd: +BS, soft, mildly tender LLQ, nondistended. Neuro: nonfocal, speech intact, no facial droop Skin: warm, dry, no rashes. Results & Data Results & Data ([facility]) Vital Signs (Past 12 Hours) Vital Signs Temp Pulse Resp BP Pulse Ox O2 Del Method 04/18/22 07:18 69 18 94 Room Air 04/18/22 07:13 36.3 C L 63 14 177/88 H 95 Room Air 04/18/22 03:22 66 18 93 Room Air 04/17/22 23:19 65 18 95 Room Air 04/17/22 22:28 36.5 C 66 18 138/75 95 Room Air 04/17/22 19:57 67 18 94 Room Air Laboratory Results 04/17/22 Range/Units 07:06 Lactate 1.3 (0.4-2.0) mmol/L
[2022-04-18 08:52] LABS: Basophils # (auto) 0.02 K/uL (0-0.2); Basophils % (auto) 0.4 %; Eosinophils # (auto) 0.16 K/uL (0-0.50); Eosinophils % (auto) 3.4 %; Hematocrit (blood only) 43.5 % (34.1-44.9); Hemoglobin 14.1 g/dl (12.0-16.0); Immature Granulocytes # (auto) 0.01 K/uL (0.00-0.02); Immature Granulocytes % (auto) 0.2 %; Lymphocytes # (auto) 1.19 K/uL (1.2-3.4); Lymphocytes % (auto) 25.6 %; Mean Corpuscular Hemoglobin 30.8 pg (25.0-34.0); Mean Corpuscular Hgb Conc 32.4 g/dL (32.0-36.0); Mean Platelet Volume 8.7 fL (9.4-12.3); Monocytes # (auto) 0.41 K/uL (0.24-0.82); Monocytes % (auto) 8.8 %; Neutrophils # (auto) 2.85 K/uL (1.4-6.5); Neutrophils % (auto) 61.6 %; Platelet Count 213 K/uL (130-400); RDW Coefficient of Variation 13.2 % (11.5-14.5); RDW Standard Deviation 46.3 fL (36.4-46.3); Red Blood Count 4.58 M/uL (3.93-5.22); White Blood Count 4.64 K/ul (4.8-10.8)
[2022-04-18 09:21] LABS: BUN Creatinine Ratio 17.5 (10-20); Calcium 9.6 mg/dl (8.5-10.1); Creatinine Clr Calc Pharmacy 55.8 ml/min; Est GFR (Non-African American) 84.5 ml/min; Potassium 3.9 mmol/L (3.5-5.1)
[2022-04-18] MEDS: POLYETHYLENE (MIRALAX) 17 GM PACK PO SCH (09:57)
--- NOTE | 2022-04-18 14:42 | Discharge Summary ---
Date of Service April 18, 2022 Admission HPI Per Admitting Provider Roseanna Covarrubias is an 86yo female with history of HTN, HLP, Hypothyroidism, GERD and Glaucoma presenting with 2-3 day history of dysuria and 1 day of gross hematuria with passage of clots. Patient feels that her urinary stream is slow at times but has not had retention. She denies suprapubic or flank pain. Also with 2-3 weeks of dyspnea at rest and with exertion, wheeze and cough productive for yellow phlegm. She reports difficulty taking a deep breath due to cough. She has had poor appetite and decreased oral intake for the last day. No additional complaints at this time -she denies chest pain, palpitations, abdominal pain, nausea, vomiting or diarrhea. She has some mild constipation. In the ER patient with elevated temperature of 37.6, tachycardic at 110bpm. Her initial lactic acid level was elevated slightly at 2.1. ER Course: NSS x 500mL, Ceftriaxone, Tylenol Principal Diagnosis UTI Discharge Exam General:resting comfortably, NAD, awake, AOx3 HEENT: NCAT, EOMI, anicteric sclera, conjunctiva without injection, moist mucus membranes, no JVD Heart: RRR, +systolic murmur, +S1/S2 Lungs: equal air entry bilaterally, soft rhonchi R lower lung improved with coughing, diffuse end-expiratory mild wheezing in bilateral lung hair Neuro: nonfocal, speech intact, no facial droop Skin: warm, dry, no rashes. Discharge Data Allergies Allergy/AdvReac Type Severity Reaction Status Date / Time timolol Allergy Mild Swelling Verified 02/03/22 14:18 brimonidine Allergy Unknown SWELLING Verified 02/03/22 14:18 ON FACE lisinopril Allergy Unknown HEART RATE Verified 02/03/22 14:18 DROPPED/TIRED adhesive Allergy Verified 02/03/22 14:18 amlodipine Allergy Verified 02/03/22 14:18 labetalol Allergy Verified 02/03/22 14:18 ezetimibe AdvReac Mild Exhausted Verified 02/03/22 14:18 losartan AdvReac Unknown SEVERE Verified 02/03/22 14:18 BACK PAIN benzonatate AdvReac eye Verified 02/03/22 14:18 pressure methocarbamol AdvReac itching Verified 02/03/22 14:18 Consultations 04/17/22 05:44 ED Decision to Admit Stat Ordered Studies Laboratory Results WBC 4.64 K/ul (4.8-10.8) L 04/18/22 08: RBC 4.58 M/uL (3.93-5.22) 04/18/22 08:27 Hgb 14.1 g/dl (12.0-16.0) 04/18/22 08: Hct 43.5 % (34.1-44.9) 04/18/22 08:27 MCV 95.0 fL (80.0-100.0) 04/18/22 08:27 MCH 30.8 pg (25.0-34.0) 04/18/22 08: MCHC 32.4 g/dL (32.0-36.0) 04/18/22 08: RDW Std Deviation 46.3 fL (36.4-46.3) 04/18/22 08: RDW Coeff of Pb 13.2 % (11.5-14.5) 04/18/22 08: Plt Count 213 K/uL (130-400) 04/18/22 08:27 MPV 8.7 fL (9.4-12.3) L 04/18/22 08:27 Immature Gran % (Auto) 0.2 % 04/18/22 08:27 Neut % (Auto) 61.6 % 04/18/22 08:27 Lymph % (Auto) 25.6 % 04/18/22 08:27 Sullivan % (Auto) 8.8 % 04/18/22 08:27 Eos % (Auto) 3.4 % 04/18/22 08:27 Baso % (Auto) 0.4 % 04/18/22 08:27 Neut # (Auto) 2.85 K/uL (1.4-6.5) 04/18/22 08:27 Lymph # (Auto) 1.19 K/uL (1.2-3.4) L 04/18/22 08:27 Sullivan # (Auto) 0.41 K/uL (0.24-0.82) 04/18/22 08:27 Eos # (Auto) 0.16 K/uL (0-0.50) 04/18/22 08:27 Baso # (Auto) 0.02 K/uL (0-0.2) 04/18/22 08:27 Immature Gran # (Auto) 0.01 K/uL (0.00-0.02) 04/18/22 08:27 PT 10.4 Seconds (9.0-12.0) 04/17/22 04:20 INR 1.0 (0.9-1.1) 04/17/22 04:20 APTT 25.8 Seconds (21.0-31.0) 04/17/22 04:20 PTT Ratio 0.9 04/17/22 04:20 Sodium 142 mmol/L (136-145) 04/18/22 08:27 Potassium 3.9 mmol/L (3.5-5.1) 04/18/22 08:27 Chloride 106 mmol/L (98-107) 04/18/22 08:27 Carbon Dioxide 30 mmol/L (21-32) 04/18/22 08:27 Anion Gap 6 (3-11) 04/18/22 08:27 BUN 10 mg/dl (6-23) 04/18/22 08:27 Creatinine 0.57 mg/dl (0.6-1.2) L 04/18/22 08:27 Est Cr Clr Drug Dosing 55.8 ml/min 04/18/22 08:27 Est GFR ( Amer) 98.0 ml/min 04/18/22 08:27 Est GFR (Non-Af Amer) 84.5 ml/min 04/18/22 08:27 BUN/Creatinine Ratio 17.5 (10-20) 04/18/22 08:27 Glucose 100 mg/dl (70-99(Fasting)) H 04/18/22 08:27 Lactate 1.3 mmol/L (0.4-2.0) 04/17/22 07:06 Calcium 9.6 mg/dl (8.5-10.1) 04/18/22 08:27 Magnesium 1.9 mg/dl (1.7-2.4) 04/17/22 04:20 Total Bilirubin 0.4 mg/dl (0.2-1.0) 04/17/22 04:20 AST 19 U/L (13-39) 04/17/22 04:20 ALT 16 U/L (7-52) 04/17/22 04:20 Alkaline Phosphatase 83 U/L (34-104) 04/17/22 04:20 Troponin I High Sens 4.9 pg/ml (0-14) 04/17/22 04:20 C-Reactive Protein 3.23 mg/dl (0-0.5) H 04/18/22 10:12 B-Natriuretic Peptide 21 pg/ml (0-100) 04/17/22 04:57 Total Protein 7.1 gm/dl (6.0-8.3) 04/17/22 04:20 Albumin 4.2 gm/dl (3.4-5.0) 04/17/22 04:20 Globulin 2.9 gm/dl (2.5-4.0) 04/17/22 04:20 Albumin/Globulin Ratio 1.4 (0.9-2) 04/17/22 04:20 Procalcitonin 0.05 ng/ml (0-0.5) 04/18/22 10:12 Urine Color Red 04/17/22 04:00 Urine Appearance Turbid (Clear) A 04/17/22 04:00 Urine pH 7.5 (4.5-7.5) 04/17/22 04:00 Ur Specific Lowry 1.016 (1.000-1.030) 04/17/22 04:00 Urine Protein 2+ (Negative) H 04/17/22 04:00 Urine Glucose (UA) Negative (Negative) 04/17/22 04:00 Urine Ketones Negative (Negative) 04/17/22 04:00 Urine Blood 3+ (Negative) H 04/17/22 04:00 Urine Nitrite Negative (Negative) 04/17/22 04:00 Urine Bilirubin Negative (Negative) 04/17/22 04:00 Urine Urobilinogen Negative (Negative) 04/17/22 04:00 Ur Leukocyte Esterase 2+ (Negative) H 04/17/22 04:00 Urine WBC (Auto) >30 /hpf (0-5) H 04/17/22 04:00 Urine RBC (Auto) >30 /hpf (0-4) H 04/17/22 04:00 U Hyaline Cast (Auto) Not Reportable 04/17/22 04:00 U Epithel Cells (Auto) 5-10 /lpf (0-5) H 04/17/22 04:00 Urine Bacteria (Auto) Negative (Negative) 04/17/22 04:00 Urine Yeast Not Reportable 04/17/22 04:00 SARS-CoV-2, RNA, NAAT NEGATIVE (NEGATIVE) 04/17/22 04:53 Impressions Chest X-Ray 04/18/22 09:00 XR chest 1V portable HISTORY: 86 years-old Female wheezing, SOB acute wheezing with shortness of breath COMPARISON: 04/17/2022 TECHNIQUE: Portable AP view of the chest FINDINGS: Cardiomediastinal and hilar silhouettes are within normal limits. No pneumo thorax, pleural effusion, airspace consolidation or overt pulmonary edema. Unchanged opacity of the medial right lung base suggestive of a prominent epicardial fat pad. Bones of the chest appear grossly intact. IMPRESSION: No acute process. ACT 112: Negative or not required by law. The above report was generated using voice recognition software. It may contain grammatical, syntax or spelling errors. Electronically signed by: Leoncio Kay M.D. 04/18/2022 7:12 AM Hospital Course (1) Hematuria: 86 yo F with PMHx of HTN, HLD, Hypothyroidism, GERD, and Glaucoma presenting with 2-3 day history of dysuria and 1 day of gross hematuria with passage of clots. Uncomplicated UTI Hematuria, resolved Chronic back pain but no new flank pain reported.No history of renal stones (did have a CT abd/pelv performed on 02/04/22 which did not show renal stones or mass). -Hbg is normal -UA suggestive of inflammation, no bacteria. -blood cx no growth after 24 hours -urine cx grew E. coli, sensitivities pending; has had culture with castellanos- sensitive E.coli in the past -Tylenol PRN pain or fever -held ASA for hematuria; may cont. on discharge -Ceftriaxone 1gm IV daily d/c'd; start oral cefdinir 300mg bid x3 days on 04/19/22 Shortness of breath Patient reports 2-3 weeks of MAY as well as dyspnea with laying flat. Cough productive for yellow sputum. BNP is within normal limits. CXR with no obvious edema or infiltrate.Pulmonary exam is significant for diffuse end-expiratory wheezing as well as rhonchi in the right base that clears with coughing.Saturations are adequate on room air. Most likely viral in nature. -Repeat CXR: no acute process -IVF d/c'd (04/17) -CRP elevated at 3; procal wnl -Robitussin PRN d/c'd on discharge -did find benefit from albuterol; prescribed for outpatient use 2 puffs a4h prn -cont. incentive spirometer at home -pt has follow up with PCP tomorrow, if she happens to clinically worsen consider prescribing Zithromax course for possible atypical pneumonia Hypothyroidism Chronic.Stable on Synthroid.Last TSH on 12/25/21 WNL at 1.478 -Continue Synthroid Hypertension Blood pressure appropriately controlled without medications Glaucoma -cont. travoprost drops Constipation -miralax d/c'd on discharge (2) Shortness of breath: (3) Hypothyroidism: (4) Hypertension: Total Time Total Time Spent Total Time Spent (In Minutes): 30 Discharge Plan Discharge Items Patient Disposition: Home - Self-Care Reason For Visit: FEVER,ILLNESS Discharge Diagnosis: UTI Activity: Per Instructions section Non-emergency contact: Primary Care Provider Call non-emergency contact if: you have any medication questions, your symptoms worsen and you have a fever Follow-up/Referrals: Peter Guardado, [Primary Care Provider] - Diet: Heart Healthy Addtl Attending Provider Instructions: You were admitted to the hospital for blood your urine and shortness of breath. It was found that you had a urinary tract infection (UTI). We treated you with IV abx in the hospital and have prescribed you an oral antibiotic which you can take at home which will treat your UTI. It seems your UTI has already seemed to improved based on your symptoms and lack of blood in the urine. You also presented with shortness of breath. Based on your labs and presentation, there were no tell tale signs of bacterial infection requiring infections. We suspect your chest congestion is from a viral etiology. I am reassured that you are being seen by your PCP Dr. Guardado tomorrow so if congestion seems to be worsening he can prescribe an antibiotic if warranted. I will leave him with some recommendations in my discharge summary which he will be able to access during your appointment. Medications: 1) Cefdinir 300mg twice a day for 3 days starting on 04/19/2022. This medication may cause a red-orange tinged color to your pee so don't be alarmed if that does occur. This medication has been sent to your pharmacy. 2) Albuterol inhaler with spacer: You can take 2 puffs every 4 hours NEEDED. The albuterol inhaler will be sent to your pharmacy. The spacer which helps the medicine get into your lungs will be provided to you from the hospital. 3) I would also like you to continue your incentive spirometer (the plastic device where you inhaled to make the yellow ball rise) when you go home. Please follow up with your PCP tomorrow, Dr. Guardado, for further recommendations. Hope you feel better! Pending Studies at Discharge: No Stand-Alone Forms: My [facility] Medications and DC Order Prescriptions: New cefdinir 300 mg capsule 300 mg PO BID Qty: 6 0RF Rx Instructions: start on 04/19/2022 albuterol sulfate [ProAir HFA] 90 mcg/actuation HFA aerosol inhaler 2 inh inhalation Q4H PRN (Reason: shortness of breath or wheezing) Qty: 6.7 0RF Continued cholecalciferol (vitamin D3) 2,000 unit tablet 2,000 units PO HS Qty: 30 travoprost 0.004 % drops 1 drops OP HS Label Comments: Instill 1 drop into each eye (DME) TENS unit and electrodes Combo Pack See Rx Instructions .ROUTE .MEDSUPPLY Qty: 1 0RF Rx Instructions: As directed levothyroxine 50 mcg tablet 50 mcg PO QAM 90 Days Qty: 90 3RF prednisone 20 mg tablet 20 mg PO DAILY Qty: 5 0RF cyclobenzaprine 5 mg tablet 5 mg PO TID PRN (Reason: muscle spasm and back pain) Qty: 30 0RF aspirin [Zoey Low Dose Aspirin] 81 mg Tablet,Delayed Release (Dr/Ec) 81 mg PO HS Discharge Orders: Discharge Order (Routine); Ordered 04/18/22 Ordered By: Tomas Veronica Admission Data Admit Date/Time: 04/17/22 06:14 Attending Provider: Roz Saunders Admit Provider: Ashley Ramirez Primary Care Provider: Peter Guardado Other Providers: Ashley Ramierz Other Interventions: Discharge Summary Assessment (RN) Last Done: 04/18/22 14:19 Resident Activity Tracking Resident Involvement: Resident Care Provided Care Provided: Adult Hospital Medicine
== END 2022-04-18 15:27 | disposition home or self-care (01) | DRG 690 ==
LOC: ED 03:40 → SUATTDRO 06:14 → INTOOBSV 06:14 → 3E 06:14